=== PATIENT | male | born 1960 | race Asian ===

== ENCOUNTER 2025-09-17 23:13 | Inpatient (IN) | payer OTHER, MEDICARE, SELFPAY ==
[2025-09-17 23:23] VITALS: BMI 28.5
[2025-09-17 23:25] VITALS: BP 134/85; PULSE 89; RESP 18; TEMP 36.7; O2SAT 95
--- NOTE | 2025-09-17 23:48 | XR_ITS ---
EXAMINATION: AP chest single view TECHNIQUE: AP sitting portable chest single view Date and time: September 18, 2025, 0007 hours INDICATION: Chest pain beginning 4 days ago. FINDINGS: Normal heart size Lungs are clear. Osseous structures are intact IMPRESSION: No active disease
--- NOTE | 2025-09-17 23:50 | XR_ITS ---
Examination: Knee, left, 3 views Technique: Knee AP, lateral, oblique 3 views Date and time of exam: September 18, 2025, 0015 hours INDICATIONS: Left knee swelling and pain beginning 4 days ago. FINDINGS: Moderate tricompartment osteoarthritis No fracture or dislocation Small to moderate knee effusion IMPRESSION: Moderate tricompartment osteoarthritis Small to moderate knee effusion
--- NOTE | 2025-09-17 23:52 | PD.EDRME ---
Rapid Medical Screening Exam [facility] Arrival date/time: 09/17/25 23:13 65M with no significant PMH presents to ED with several complaints: 2 week of intermittent but worsening ab pain and some solid but black stools. Patient denies N/V and dysuria/hematuria. Separately, patient also has a slight cough and some SOB, as well as bilateral feet swelling. There is also L knee swelling and pain w/o fall/trauma. Patient denies alcohol/drug use. Chief Complaint: Abdominal Pain Vital signs: Vital Signs Temperature 98.1 F 09/17/25 23:25 Pulse Rate 89 09/17/25 23:25 Respiratory Rate 18 09/17/25 23:25 Blood Pressure 134/85 H 09/17/25 23:25 Pulse Oximetry (%) 95 09/17/25 23:25 Oxygen Delivery Method Room Air 09/17/25 23:25 Exam: Normal WOB. RLQ tenderness and guarding. L knee tenderness and swelling. Some bilateral feet swelling, but no obvious lower leg/thigh swelling. Clinical Impression: CHF vs CAP vs appy vs colitis vs GIB vs septic arthritis vs joint pain vs URI
--- NOTE | 2025-09-18 | XR_ITS ---
MRI abdomen, without contrast. MRCP Date and time of exam: September 18, 2025, 0948 hours INDICATIONS: Diarrhea abdominal pain elevated liver function test today, acute calculus cholecystitis on ultrasound study today Technique: Multiple axial and coronal images of the abdomen have been obtained with the Siemens 1.5T MRI scanner. Images obtained included T1 weighted transverse images, T2-weighted transverse images, T2-weighted transverse images fat-suppressed, T2 weighted haste fat suppressed transverse images, T1 weighted images, in and out of phase images, T2-weighted coronal images, breath hold, T2 weighted haze coronal images as well as T2 weighted coronal thick slab images, MRCP. Findings: No intrahepatic biliary tract dilatation Gallstones The gallbladder wall does not appear thickened or edematous on this study Common hepatic duct Common bile duct not enlarged no stones Pancreatic duct is nondilated Spleen is not enlarged No hydronephrosis IMPRESSION: Cholelithiasis, negative for cholecystitis No common hepatic or common bile duct stones Please see the CT abdomen pelvis report September 18, 2025 for description of large phlegmonous mass in the right lower abdomen
--- NOTE | 2025-09-18 00:12 | PD.EDABDPN ---
ED Abdominal Pain RME/HPI General Chief Complaint: Abdominal Pain Stated complaint: ABD PAIN, DIARRHEA, BLE SWELLING AND PAIN Time seen by provider: 09/18/25 00:03 Arrival date/time: 09/17/25 23:13 RME / HPI RME / HPI narrative: 09/17/25 23:13 65M with no significant PMH presents to ED with several complaints: 2 week of intermittent but worsening ab pain and some solid but black stools. Patient denies N/V and dysuria/hematuria. Separately, patient also has a slight cough and some SOB, as well as bilateral feet swelling. There is also L knee swelling and pain w/o fall/trauma. Patient denies alcohol/drug use. DR. STEEN MAIN ED EVALUATION: 65 y/o male presents to ED c/o severe all-over abdominal pain with dark colored stool x 2 weeks. Also reports severe left knee pain x 1 week. Patient reports IBU use to manage the knee pain and is concerned for peptic ulcers. Son states patient has been crawling to the restroom due to knee pain, but patient denies any recent falls or injuries. Patient lives alone at home since and family lives in [place]. Denies any medical history or medications. Denies nausea, fever, and vomiting. Also denies history of kidney stones or dysuria. Denies tobacco or alcohol use. No allergies to medications reported. Exam: Normal WOB. RLQ tenderness and guarding. L knee tenderness and swelling. Some bilateral feet swelling, but no obvious lower leg/thigh swelling. Impression: CHF vs CAP vs appy vs colitis vs GIB vs septic arthritis vs joint pain vs URI Related Data Home Medications ?Medication ?Instructions ?Recorded ?Confirmed Fish Oil 1 tab PO DAILY 09/18/25 09/18/25 Probiotic 1 tab PO DAILY 09/18/25 09/18/25 cholecalciferol (vitamin D3) 50 50 mcg PO QDAY 09/18/25 09/18/25 mcg (2,000 unit) capsule (Vitamin D3) cyanocobalamin (vitamin B-12) 2,000 mcg PO QDAY 09/18/25 09/18/25 1,000 mcg tablet (Vitamin B-12) dorzolamide 22.3 mg-timolol 6.8 1 drp Both eyes BID 09/18/25 09/18/25 mg/mL eye drops latanoprost 0.005 % eye drops 1 drp Both eyes DAILY 09/18/25 09/18/25 magnesium 1 tab PO DAILY 09/18/25 09/18/25 magnesium 200 mg tablet 400 mg PO QDAY 09/18/25 09/18/25 zinc 25 mg tablet 25 mg PO DAILY 09/18/25 09/18/25 Allergies Allergy/AdvReac Type Severity Reaction Status Date / Time No Known Allergies Allergy Verified 09/17/25 23:21 Review of Systems Review of Systems Systems Reviewed: All systems reviewed, normal except as documented ED Exam Narrative Physical exam: GEN. APPEARANCE: The patient is alert awake oriented X-3 in no distress, lying down comfortably, does not look ill/toxic. Patient has good eye contact. Patient is cooperative. VITALS: All vitals were reviewed and the pulse ox is 95% on room air which is normal according to my interpretation. HEENT: Normocephalic, atraumatic. Pupils are equal and reactive. Oral mucosa is moist. Patent Nares NECK: Supple, nontender, no thyromegaly, no meningismus, no JVD CHEST: Symmetrical, atraumatic, and with equal expansion , Nontender on palpation no deformity and no crepitus. CARDIOVASCULAR: Heart regular rhythm no murmur or gallop rub or extra beats. LUNGS: Clear to auscultation bilaterally with symmetrical chest rise. No laboring tachypnea or wheezing. No intercostal subcostal retraction. No rales and no rhonchi. ABDOMEN: Soft, flat, tender to palpation at the RUQ, LUQ, and Epigastrium, no guarding or rebound tenderness. There are no abnormal masses palpated. Active and normal bowel sounds. EXTREMITIES: TTP just below left knee. No edema. No cyanosis. Patient is able to move all 4 extremities well, with full ROM and good CSM. SKIN: Warm and dry, no jaundice or rashes noted. MUSCULOSKELETAL: No lumbar or midline bony tenderness. There is no CVA tenderness. No paraspinal muscle spasm or tenderness. NEURO: Patient is DUNHAM x 4, Cranial nerves II through XII grossly intact. There is no focal neurologic deficits noted. GCS is 15, PNS and ADMINISTRATIVE EXECUTIVE appear grossly intact. PSYCHIATRIC: Patient is in normal mood and affect. Course Quality Measures none Orders Category Date Time Status CT Screening NOW Care 09/18/25 00:14 Completed EKG (ED ONLY) *Do not use* NOW Care 09/17/25 23:49 Completed Insert IV NOW Care 09/17/25 23:50 Completed Consult to Gastroenterology Stat Cons 09/18/25 01:[address] angio abdomen pelvis Stat Exams 09/18/25 00:13 Completed EKG (ED Only) Stat Exams 09/17/25 23:49 Ordered US abdomen limited Stat Exams 09/18/25 01:04 Completed XR chest 1V portable Stat Exams 09/17/25 23:48 Completed XR knee LT 3V Stat Exams 09/17/25 23:50 Completed B-Type Natriuretic Peptide Stat Lab 09/17/25 00:00 Completed Blood Culture (Lab) Stat Lab 09/18/25 04:25 Results CBC Stat Lab 09/17/25 00:00 Completed Comprehensive Metabolic Panel Stat Lab 09/17/25 00:00 Completed Hemoglobin A1C [Glycohemoglobin w (eAG)] Stat Lab 09/18/25 00:00 Completed INR [Prothrombin Time with INR] Stat Lab 09/18/25 01:41 Completed Lactate (Lactic Acid) Stat Lab 09/17/25 00:00 Completed Lactic Acid [Lactate (Lactic Acid)] Stat Lab 09/18/25 04:25 Completed Magnesium Stat Lab 09/17/25 00:00 Completed Procalcitonin Stat Lab 09/17/25 00:00 Completed Troponin I Stat Lab 09/17/25 00:00 Completed Type and Screen Stat Lab 09/18/25 01:41 Completed Morphine* Inj Med 09/17/25 23:50 Discontinued 4 mg IV X1 ONE Ondansetron Inj [Zofran Inj] Med 09/17/25 23:50 Discontinued 4 mg IVP X1 ONE Pantoprazole/Ns 80Mg IV Premix [Protonix/NS 80mg IV Med 09/18/25 01:05 Discontinued Premix] 80 mg in 100 ml IV X1 Pantoprazole/Ns 80Mg IV Premix [Protonix/NS 80mg IV Med 09/18/25 01:05 Discontinued Premix] 80 mg in 100 ml IV X1 Piper/Tazo Inj [Zosyn Inj] 4.5 gm Med 09/18/25 03:50 Discontinued Sodium Chloride 0.9% (Pop) [NS 0.9% mini bag] 100 ml IV X1 Vital Signs Vital signs: Vital Signs Temperature 98.1 F 09/17/25 23:25 Pulse Rate 89 09/17/25 23:25 Respiratory Rate 18 09/17/25 23:25 Blood Pressure 134/85 H 09/17/25 23:25 Pulse Oximetry (%) 95 09/17/25 23:25 Oxygen Delivery Method Room Air 09/17/25 23:25 Abdominal Pain MDM MDM Narrative MDM Narrative:: Scribe Attestation: Kiana Bunch am scribing for and in the presence of Dr. Steen. Provider Notation: Although this document has been carefully reviewed, there may still be some phonetic and other typographical errors. These errors are purely grammatical due to imperfections in the software program and should not be construed in any way to compromise the substance of the patient's medical care during this visit. Patient is a 65-year-old male with medical history notable for chronic left knee pain, and frequent ibuprofen use that is in emergency department concerns for melena, diffuse abdominal pain, worse in the epigastrium and the right upper quadrant as well as left knee pain and weakness for the last week. Vital signs and exam as listed. Concern for perforated ulcer, gastritis, cholelithiasis cholecystitis pancreatitis, ACS arrhythmia urinary tract infection among others. Patient also with tenderness to palpation in the knee on the left side inferior to the patella, no swelling fluctuance or crepitus appreciated, no pain in the calf nor in the thigh knee. Less likely DVT, septic joint. Concern for worsening osteoarthritis versus meniscal tear. Ordered CT angio of the abdomen, labs, EKG, chest x-ray, knee x-ray, Protonix bolus and drip as well as medications for symptom relief. Also placed consult over night to wire web worker Dr. León. Labs with evidence of leukocytosis 13, no left shift, hemoglobin 11.8 do not have a prior for comparison. No acute electrolyte abnormalities, patient's lactic acid is normal, T. bili is 1.9 AST is 94 ALT is 102 alk phos 212, right upper quadrant ultrasound shows a normal common bile duct however has findings concerning for possible cholecystitis. Patient's procalcitonin is 0.74. Patient's blood type is O+. CT abdomen pelvis with contrast shows a right lower quadrant abscess, inflammatory changes of the cecum associated with peripheral edema. Patient with gallstones and gallbladder wall thickening concerning for acute calculous cholecystitis. Ordered blood cultures and antibiotics. Consulted Dr. Simms, will evaluate patient. Request's admission to hospitalist service. Discussed with hospitalist service, will admit. Patient data External records reviewed:: [facility] previous records (No prior ED records available for review.) Clinical information provided by:: patient and family (Son) Social determinants that could affect healthcare access:: none Patient has the following chronic illnesses:: None reported How is presenting disease/condition affected by chronic disease/condition?: no chronic disease Evaluation data The following diagnostics were reviewed and interpreted by me:: lab results, radiology exam(s) and EKG tracing(s) (EKG done at 00:04, 89 bpm, normal intervals, non-specific T-wave changes, not a cardiac alert. - Interpreted by Dr. Klarissa Steen.) Lab and/or radiology exams considered but not ordered:: None Interpretation Summary: RADIOLOGY Right Knee X-Ray: Pending official radiology report. Chest X-Ray: Pending official radiology report. Abdomen US: Findings: The liver is enlarged demonstrates increased echogenicity. No intrahepatic biliary ductal dilatation. Gallbladder wall thickening. Gallstones. No pericholecystic fluid is demonstrated. The common bile duct is normal in caliber at 5.8 mm. The pancreas is unremarkable to the extent visualized. The imaged portions of the right kidney are within normal limits. The portal vein is patent with hepatopetal flow and normal wave Doppler spectral analysis. The IVC is patent with normal wave Doppler spectral analysis. The hepatic veins are patent with normal wave Doppler spectral analysis. Miller sign is not available at the time of this report. Impression: Gallstones associated with gallbladder wall thickening, highly suspicious for acute calculous cholecystitis. Hepatomegaly associated with liver steatosis, suspicious for steatohepatitis. Abdomen/Pelvis CT: Findings: The abdominal aorta demonstrates mild atheromatous calcification without evidence of dissection or aneurysm. The celiac, superior mesenteric, inferior mesenteric and bilateral renal arteries are patent to the extent visualized. The common iliac, external iliac and internal iliac arteries are patent bilaterally. The liver, spleen, pancreas, adrenals and kidneys are unremarkable. Gallstones. Gallbladder wall thickening. No evidence of bowel obstruction. The appendix is not visualized. Right lower quadrant collection measuring 4.9 x 2.8 cm. Diverticulosis of the colon. The urinary bladder is unremarkable. There is no free fluid, free air or abscess. The osseous structures are unremarkable. The lung bases are clear. Severe thickening of the cecum associated with peripheral fat stranding. Enlarged prostate. Impression: 1. Right lower quadrant abscess. Surgical consult is recommended. 2. Inflammatory changes of the cecum associated with peripheral edema. Differential diagnosis includes acute appendicitis and acute diverticulitis of the cecum/proximal ascending colon with contained perforation. Surgical consult is recommended. 3. No evidence of abdominal aortic aneurysm or mesenteric vascular occlusion. 4. Gallstones and gallbladder wall thickening, highly suspicious for acute calculous cholecystitis. 5. Enlarged prostate. 6. No evidence of bowel or mesenteric ischemia. Medications / Prescriptions Medications or Prescriptions considered but not ordered:: None Medication administrations:: Medication Administration History Acetaminophen (Acetaminophen 325 Mg Tablet) 650 mg PO Q6H PRN PRN Reason: Fever >100.4 Stop: 10/18/25 05:56 Diclofenac Sodium (Diclofenac 1% Top Gel 100 Gm Tube) 2 gm TOP TID [facility] Stop: 10/20/25 09:14 Last Admin: 09/20/25 21:40 Dose: Not Given Documented By: CTF Non-Admin Reason: Patient Refused Admin: 09/20/25 15:19 Dose: 2 gm Documented By: Admin: 09/20/25 09:15 Dose: 2 gm Documented By: NIKOLAY Docusate Sodium (Docusate Sod 100 Mg Capsule) 100 mg PO BID [facility]; Protocol Stop: 10/20/25 08:59 Last Admin: 09/20/25 22:04 Dose: Not Given Documented By: [facility] Non-Admin Reason: Patient Refused Admin: 09/20/25 08:54 Dose: Not Given Documented By: NIKOLAY Non-Admin Reason: NPO Dorzolamide/Timolol (Dorzolamide/Timolol Op Mattie 10 Ml Btl) 1 drop BOTH EYES BID JASIEL Stop: 10/20/25 08:59 Last Admin: 09/20/25 21:31 Dose: 1 drop Documented By: [facility] Admin: 09/20/25 09:09 Dose: 1 1000units Documented By: NIKOLAY Piperacillin Sod/Tazobactam (Sod 4.5 gm/ Sodium Chloride) 100 mls @ 25 mls/hr IV Q8HR JASIEL; Protocol Stop: 09/25/25 13:59 Last Admin: 09/20/25 21:23 Dose: 25 mls/hr Documented By: [facility] Infusion: 09/20/25 19:14 Dose: Infused Documented By: [facility] Admin: 09/20/25 15:14 Dose: 25 mls/hr Documented By: Infusion: 09/20/25 11:35 Dose: Infused Documented By: Admin: 09/20/25 06:16 Dose: 25 mls/hr Documented By: [facility] Infusion: 09/20/25 01:53 Dose: Infused Documented By: [facility] Admin: 09/19/25 21:53 Dose: 25 mls/hr Documented By: [facility] Infusion: 09/19/25 18:16 Dose: Infused Documented By: [facility] Admin: 09/19/25 14:16 Dose: 25 mls/hr Documented By: Infusion: 09/19/25 10:32 Dose: Infused Documented By: Admin: 09/19/25 06:32 Dose: 25 mls/hr Documented By: [facility] Infusion: 09/19/25 01:22 Dose: Infused Documented By: [facility] Admin: 09/18/25 21:22 Dose: 25 mls/hr Documented By: [facility] Infusion: 09/18/25 18:59 Dose: Infused Documented By: [facility] Admin: 09/18/25 14:59 Dose: 25 mls/hr Documented By: [facility] Sodium Chloride (Ns) 1,000 mls @ 100 mls/hr IV .Q10H JASIEL Stop: 10/18/25 08:44 Last Admin: 09/20/25 22:04 Dose: Not Given Documented By: [facility] Non-Admin Reason: Wrong Time Admin: 09/20/25 21:20 Dose: 100 mls/hr Documented By: Infusion: 09/20/25 19:07 Dose: Infused Documented By: [facility] Admin: 09/20/25 09:07 Dose: 100 mls/hr Documented By: Infusion: 09/20/25 07:54 Dose: Infused Documented By: Admin: 09/19/25 21:54 Dose: 100 mls/hr Documented By: [facility] Infusion: 09/19/25 21:54 Dose: Infused Documented By: [facility] Admin: 09/19/25 14:17 Dose: 100 mls/hr Documented By: Infusion: 09/19/25 08:10 Dose: Infused Documented By: Admin: 09/18/25 22:10 Dose: 100 mls/hr Documented By: [facility] Infusion: 09/18/25 18:49 Dose: Infused Documented By: [facility] Admin: 09/18/25 08:49 Dose: 100 mls/hr Documented By: Latanoprost (Latanoprost Op Mattie 0.005% 2.5 Ml Btl) 1 drop BOTH EYES DAILY [facility] Stop: 10/20/25 08:59 Last Admin: 09/20/25 21:32 Dose: 1 drop Documented By: [facility] Admin: 09/20/25 09:12 Dose: Not Given Documented By: NIKOLAY Non-Admin Reason: Medication Not Available Morphine Sulfate (Morphine Sulf Inj 4 Mg/Ml Vial) 2 mg IVP Q6HR PRN PRN Reason: pain 7-10 Stop: 09/23/25 06:08 Last Admin: 09/20/25 11:59 Dose: 2 mg Documented By: Admin: 09/19/25 22:10 Dose: 2 mg Documented By: [facility] Admin: 09/19/25 07:54 Dose: 2 mg Documented By: Admin: 09/18/25 21:23 Dose: 2 mg Documented By: [facility] Pantoprazole Sodium (Pantoprazole Inj 40 Mg Vial) 40 mg IVP BID [facility] Stop: 10/18/25 20:59 Last Admin: 09/20/25 21:33 Dose: 40 mg Documented By: Admin: 09/20/25 08:53 Dose: 40 mg Documented By: Admin: 09/19/25 21:53 Dose: 40 mg Documented By: Admin: 09/19/25 08:11 Dose: 40 mg Documented By: Admin: 09/18/25 21:01 Dose: 40 mg Documented By: ERIC Discontinued Medications Benzocaine (Benzocaine 20% (Hurricaine) [place] 1 Dose) Confirm Administered Dose 1 dose TOP .STK-MED ONE Stop: 09/19/25 19:40 Benzocaine (Benzocaine 20% (Hurricaine) [place] 1 Dose) 0 dose TOP X1 ONE Stop: 09/19/25 19:39 Colchicine (Colchicine 0.6 Mg Tablet) 1.2 mg PO X1 ONE Stop: 09/18/25 17:39 Last Admin: 09/18/25 17:46 Dose: 1.2 mg Documented By: SHAINA Diclofenac Sodium (Diclofenac 1% Top Gel 100 Gm Tube) 2 gm TOP BID [facility] Stop: 10/18/25 20:59 Last Admin: 09/19/25 21:54 Dose: 2 gm Documented By: Admin: 09/19/25 08:22 Dose: 2 gm Documented By: Admin: 09/18/25 21:10 Dose: 2 gm Documented By: ERIC Diclofenac Sodium (Diclofenac 1% Top Gel 100 Gm Tube) 2 gm TOP TID [facility] Stop: 10/20/25 13:59 Diphenhydramine HCl (Diphenhydramine Elix 25 Mg/10 Ml Udc) 12.5 mg PO X1 ONE Stop: 09/18/25 22:19 Last Admin: 09/18/25 23:10 Dose: 12.5 mg Documented By: ERIC Diphenhydramine HCl (Diphenhydramine Inj 50 Mg/Ml Vial) Confirm Administered Dose 50 mg .ROUTE .STK-MED ONE Stop: 09/19/25 19:40 Diphenhydramine HCl (Diphenhydramine Inj 50 Mg/Ml Vial) 25 mg IVP [id number] PRN PRN Reason: MODERATE SEDATION Diphenhydramine HCl (Diphenhydramine Elix 25 Mg/10 Ml Udc) 12.5 mg PO X1 ONE Stop: 09/19/25 22:26 Last Admin: 09/19/25 22:35 Dose: 12.5 mg Documented By: ERIC Diphenhydramine HCl (Diphenhydramine Elix 25 Mg/10 Ml Udc) 12.5 mg PO X1 ONE Stop: 09/20/25 20:31 Last Admin: 09/20/25 21:21 Dose: 12.5 mg Documented By: CTF Fentanyl Citrate (Fentanyl Cit Inj 50 Mcg/Ml Amp 2ml) Confirm Administered Dose 200 mcg .ROUTE .STK-MED ONE Stop: 09/18/25 14:23 Last Admin: 09/18/25 15:31 Dose: Not Given Documented By: SHAINA Non-Admin Reason: not documented by IR Fentanyl Citrate (Fentanyl Cit Inj 50 Mcg/Ml Amp 2ml) Confirm Administered Dose 100 mcg .ROUTE .STK-MED ONE Stop: 09/19/25 19:40 Fentanyl Citrate (Fentanyl Cit Inj 50 Mcg/Ml Amp 2ml) 50 mcg IVP Q2M PRN PRN Reason: MODERATE SEDATION Pantoprazole Sodium (Protonix/Ns 80mg Iv Premix) 80 mg in 100 mls @ 400 mls/hr IV X1 ONE Stop: 09/18/25 01:19 Last Infusion: 09/18/25 01:40 Dose: Infused Documented By: Admin: 09/18/25 01:25 Dose: 400 mls/hr Documented By: SR Pantoprazole Sodium (Protonix/Ns 80mg Iv Premix) 80 mg in 100 mls @ 10 mls/hr IV X1 ONE Stop: 09/18/25 11:04 Last Admin: 09/18/25 01:43 Dose: 10 mls/hr Documented By: SR Piperacillin Sod/Tazobactam (Sod 4.5 gm/ Sodium Chloride) 100 mls @ 200 mls/hr IV X1 ONE; Protocol Stop: 09/18/25 04:19 Last Infusion: 09/18/25 04:55 Dose: Infused Documented By: Admin: 09/18/25 04:25 Dose: 200 mls/hr Documented By: SR Lactated Ringer's (Lactated Ringers) 1,000 mls @ 100 mls/hr IV .Q10H JASIEL Stop: 10/18/25 05:59 Last Admin: 09/18/25 08:45 Dose: Not Given Documented By: EF Non-Admin Reason: Cancelled by Provider Potassium Chloride (Kcl Ivpb) 10 meq in 100 mls @ 100 mls/hr IV Q1H JASIEL Stop: 09/20/25 11:48 Last Admin: 09/20/25 15:15 Dose: 100 mls/hr Documented By: Infusion: 09/20/25 12:51 Dose: Infused Documented By: Admin: 09/20/25 11:51 Dose: 100 mls/hr Documented By: Infusion: 09/20/25 10:13 Dose: Infused Documented By: Admin: 09/20/25 09:13 Dose: 100 mls/hr Documented By: GAW Lidocaine HCl (Lidocaine Inj Pf 1% 30 Ml Vial) Confirm Administered Dose 30 ml .ROUTE .STK-MED ONE Stop: 09/18/25 14:23 Last Admin: 09/18/25 15:31 Dose: Not Given Documented By: SHAINA Non-Admin Reason: not documented by IR Midazolam HCl (Midazolam Inj 1 Mg/Ml Vial 2 Ml) Confirm Administered Dose 4 mg .ROUTE .STK-MED ONE Stop: 09/19/25 19:40 Midazolam HCl (Midazolam Inj 1 Mg/Ml Vial 2 Ml) 2 mg IVP Q2M PRN PRN Reason: Moderate Sedation Morphine Sulfate (Morphine Sulf Inj 4 Mg/Ml Vial) 4 mg IV X1 ONE Stop: 09/17/25 23:51 Last Admin: 09/18/25 01:01 Dose: 4 mg Documented By: SR Naloxone HCl (Naloxone Inj 0.4 Mg/Ml Vial) Confirm Administered Dose 0.4 mg .ROUTE .STK-MED ONE Stop: 09/18/25 14:23 Last Admin: 09/18/25 15:32 Dose: Not Given Documented By: SHAINA Non-Admin Reason: not documented by IR Ondansetron HCl (Ondansetron Inj 2 Mg/Ml Inj 2 Ml) 4 mg IVP X1 ONE; Protocol Stop: 09/17/25 23:51 Last Admin: 09/18/25 01:01 Dose: 4 mg Documented By: SR See above if any. Consultations Consultation(s) initiated? (list below): Yes Consultation #1 (Physician, Specialty, Details): Discussed with Dr. Guerrero for admission. Reviewed the patient?s HPI, PMHx, lab and/or radiology results. Discussed treatment plan. Will consult an admission to the hospitalist. Time: 03:54 Consultation #2 (Physician, Specialty, Details): Dr. Simms made aware of the patient?s HPI, PMHx, lab and/or radiology results. Discussed treatment plan. Accepts patient for admission. Time: 03:59 Diagnosis Differential diagnosis abdominal pain: abdominal pain, acute appendicitis, calculus of kidney, constipation, diverticulitis, gastroenteritis, pancreatitis, small bowel obstruction and other (Ulcer, GERD, Fatty Liver) Most likely diagnosis given after review of the tests above:: Cholecystitis, Intra-abdominal abscess, Melena Admission Indicated Admission indicated?: indicated Explain why admission is indicated or not indicated:: Cholecystitis, Intra-abdominal abscess, Melena Admission Request Was there a request for admission?: Yes Admission Attestation Admission request attestation: Discussed case with Hospitalist service regarding admission. Discussed patients ED course, exam findings, labs, and radiology results. The Hospitalist [agrees] to accept the patient for admission. Disposition Plan Disposition Plan: Admit Critical Care Time Critical Care Time Critical Care Time: Yes Total Critical Care Time (min.): 45 Attestation: The high probability of sudden, clinically significant deterioration in the patient?s condition required the highest level of my preparedness to intervene urgently. The services I provided to this patient were to treat and/or prevent clinically significant deterioration. Services included the following: chart data review, reviewing nursing notes and/or old charts, documentation time, wedding consultant collaboration regarding findings and treatment options, medication orders and management, direct patient care, vital sign assessments and ordering, interpreting and reviewing diagnostic studies and lab tests. Aggregate critical care time includes only time during which I was engaged in work directly related to the patient?s care, as described above, whether at bedside or elsewhere in the Emergency Department. It did not include time spent performing other reported procedures or the services of residents, students, nurses or physician assistants. Discharge Plan Plan Patient Disposition: Admit Acute Care w/in Hospital Patient condition on transfer: Stable Problem List Clinical Impression: Cholecystitis, Intra-abdominal abscess, Melena
--- NOTE | 2025-09-18 00:13 | XR_ITS ---
Examination: CTA abdomen, with intravenous contrast. CTA pelvis, with intravenous contrast. 2-D sagittal and coronal reconstructions. 3-D reconstructions. Date and time of exam: September 18, 2025, 0211 hours INDICATIONS: Abdominal pain diarrhea bilateral leg swelling, clinical diagnosis of mesenteric ischemia or perforation CTDI vol (mgy) 8.32 DLP (MGycm) 584 Technique: Multiple CTA images, 2.0 mm slice thickness, obtained, abdomen, pelvis, with the high-resolution 64 slice scanner. 100 cc Isovue-370 is administered intravenously. Sagittal and coronal 2-D reconstructions are obtained. 3-D reconstructions, angiographic images are obtained. 3-D postprocessing, including vascular maximum intensity projections. Low dose protocols were performed. One or more of the following dose reduction techniques were used; automated exposure control, adjustment of the mA and/or KV according to patient size, use of iterative reconstruction technique. Findings: No visualized liver or splenic lesion Gallstones Gallbladder wall is thickened No pancreatic or adrenal mass Moderate renal scar formation Aorta normal size Phlegmonous mass in the right lower abdomen, axial image 189, 5 x 4.2 cm Fluid collection within this mass 4.3 x 2.8 cm, axial image 214 Adjacent small bowel loops are distended with wall thickening Significant prostatomegaly Bladder intact IMPRESSION: Acute calculus cholecystitis Large phlegmonous mass in the right lower abdomen as above, differential would include ruptured acute appendicitis, ruptured acute diverticulitis, ruptured cecal tumor with pericecal extensive inflammatory change Recommend surgical consultation
[2025-09-18 00:58] LABS: Lactate (Lactic Acid) 1.5 mMol/L (0.4-2.0)
[2025-09-18 00:59] LABS: Basophils # (Auto) 0.1 Thou/mm3 (0.0-0.2); Basophils % (Auto) 1 % (0-2.5); Eosinophils # (Auto) 0.0 Thou/mm3 (0.0-0.5); Eosinophils % (Auto) 0 % (0-10); Hematocrit 35.9 % (41.0-53.0); Hemoglobin 11.8 g/dL (13.5-16.0); Immature Granulocytes Auto 0.08 Thou/mm3 (0.00-0.00); Lymphocytes # (Auto) 2.1 Thou/mm3 (1.0-4.8); Lymphocytes % (Auto) 16 % (10-50); Mean Corpuscular HGB Conc 32.9 g/dl (31.0-37.0); Mean Corpuscular Hemoglobin 27.3 pg (25.0-35.0); Mean Corpuscular Volume 83 fL (80-100); Monocytes # (Auto) 0.8 Thou/mm3 (0.0-0.8); Monocytes % (Auto) 6 % (0-12); Neutrophils # (Auto) 10.0 Thou/mm3 (1.8-7.7); Neutrophils % (Auto) 77 % (37-80); Nucleated Red Blood Cell # 0.00 Thou/mm3 (0.00-0.00); Nucleated Red Blood Cell % 0 /100 WBC (0); Platelet Count 425 Thou/mm3 (140-440); RDW Standard Deviation 40.1 fL (35.1-43.9); Red Blood Count 4.33 Miln/mm3 (4.50-5.90); White Blood Count 13.0 Thou/mm3 (3.8-10.6)
[2025-09-18] MEDS: ONDANSETRON INJ 2 MG/ML INJ 2 ML 4 MG IVP (01:01)
[2025-09-18] MEDS: MORPHINE SULF INJ 4 MG/ML VIAL IV (01:01)
--- NOTE | 2025-09-18 01:04 | XR_ITS ---
Examination: Abdomen sonogram, Limited Date and time of exam: September 18, 2025, 0142 hours INDICATIONS: Abdominal pain with diarrhea beginning 2 weeks ago Technique: Real-time lee scale transabdominal sonographic images of the upper abdomen obtained. Findings: Multiple gallstones Gallbladder wall 0.39 cm no edema Common bile duct 0.6 cm Pancreatic head 2.3 cm Liver 18.0 cm no focal liver lesions Normal hepatopetal portal venous flow Patent IVC IMPRESSION: Cholelithiasis, suggest MRCP follow-up to exclude cholecystitis
[2025-09-18 01:17] LABS: B-Type Natriuretic Peptide 62 pg/mL (0-100)
[2025-09-18] MEDS: PANTOPRAZOLE/NS 80MG IV PREMIX 80 MG/100 ML BAG 400 MG IV (01:25)
[2025-09-18 01:27] LABS: Alanine Aminotransferase 102 U/L (10-49); Albumin, Serum 4.3 gm/dL (3.4-4.8); Albumin/Globulin Ratio 1.1 (1.2-2.2); Alkaline Phosphatase 212 U/L (46-116); Anion Gap 13 (7-16); Aspartate Amino Transferase 94 U/L (0-34); BUN/Creatinine Ratio 16 Ratio (12-20); Bilirubin,Total 1.9 mg/dL (0.3-1.2); Blood Urea Nitrogen 19 mg/dL (9-23); Calcium 9.0 mg/dL (8.3-10.6); Calcium (Corrected) 9.0 mg/dL (8.5-10.1); Carbon Dioxide 24.9 mMol/L (20.0-31.0); Chloride 100 mMol/L (98-107); Creatinine (Component) 1.2 mg/dL (0.6-1.3); Estimated Creatinine Clearance 72.5 mL/min (>60); Globulin 3.9 gm/dL (2.3-3.5); Glucose 137 mg/dL (74-106); Magnesium 2.0 mg/dL (1.6-2.6); Osmolality,Calculated 279 (275-295); Potassium 3.4 mMol/L (3.4-5.1); Procalcitonin 0.74 ng/ml (0.0-0.49); Sodium 138 mMol/L (136-145); Total Protein 8.2 gm/dL (5.7-8.2); Troponin I < 0.020 ng/mL (0.0-0.045); eGFR > 60 See Note
[2025-09-18] MEDS: PANTOPRAZOLE/NS 80MG IV PREMIX 80 MG/100 ML BAG 10 MG IV (01:43)
[2025-09-18 01:46] LABS: Glucose Estimated Average 105 mg/dL (80-131); Hemoglobin A1C 5.3 % Hgb (4.8-6.0)
[2025-09-18 02:01] LABS: INR 1.1 (0.9-1.3); Prothrombin Time 12.1 Seconds (9.0-12.2)
[2025-09-18 02:32] VITALS: BP 125/78; PULSE 76; RESP 16; TEMP 37.1; O2SAT 96
--- NOTE | 2025-09-18 03:26 | PRELIM_ITS ---
Right upper quadrant abdominal ultrasound with Doppler and wave Doppler spectral analysis. September 18, 2025 0144 hours Clinical history: Abdominal pain with diarrhea x2 weeks. Cholecystitis. Technique: Grayscale and color flow images of the right upper quadrant are provided. Hepatic and portal veins were also imaged with color flow images. Comparison: None available at the time of this report. Findings: The liver is enlarged demonstrates increased echogenicity. No intrahepatic biliary ductal dilatation. Gallbladder wall thickening. Gallstones. No pericholecystic fluid is demonstrated. The common bile duct is normal in caliber at 5.8 mm. The pancreas is unremarkable to the extent visualized. The imaged portions of the right kidney are within normal limits. The portal vein is patent with hepatopetal flow and normal wave Doppler spectral analysis. The IVC is patent with normal wave Doppler spectral analysis. The hepatic veins are patent with normal wave Doppler spectral analysis. Miller sign is not available at the time of this report. Impression: Gallstones associated with gallbladder wall thickening, highly suspicious for acute calculous cholecystitis. Hepatomegaly associated with liver steatosis, suspicious for steatohepatitis. Report Electronically Signed By: Hardik Anderson 09/18/2025 3:25:20 AM [EST]
--- NOTE | 2025-09-18 03:55 | PRELIM_ITS ---
CT angiogram of abdomen and pelvis with intravenous contrast (axial sections with sagittal and coronal reformats). September 18, 2025 at 0211 hours Clinical History: Mesenteric ischemia, perforation. Comparison: None available at the time of this report. Findings: The abdominal aorta demonstrates mild atheromatous calcification without evidence of dissection or aneurysm. The celiac, superior mesenteric, inferior mesenteric and bilateral renal arteries are patent to the extent visualized. The common iliac, external iliac and internal iliac arteries are patent bilaterally. The liver, spleen, pancreas, adrenals and kidneys are unremarkable. Gallstones. Gallbladder wall thickening. No evidence of bowel obstruction. The appendix is not visualized. Right lower quadrant collection measuring 4.9 x 2.8 cm. Diverticulosis of the colon. The urinary bladder is unremarkable. There is no free fluid, free air or abscess. The osseous structures are unremarkable. The lung bases are clear. Severe thickening of the cecum associated with peripheral fat stranding. Enlarged prostate. Impression: 1. Right lower quadrant abscess. Surgical consult is recommended. 2. Inflammatory changes of the cecum associated with peripheral edema. Differential diagnosis includes acute appendicitis and acute diverticulitis of the cecum/proximal ascending colon with contained perforation. Surgical consult is recommended. 3. No evidence of abdominal aortic aneurysm or mesenteric vascular occlusion. 4. Gallstones and gallbladder wall thickening, highly suspicious for acute calculous cholecystitis. 5. Enlarged prostate. 6. No evidence of bowel or mesenteric ischemia. Discussion Details: Results verbally communicated to : Dr. Hoskins at 03:37 AM 09/18/2025 Report Electronically Signed By: Hardik Anderson 09/18/2025 3:54:04 AM [EST]
[2025-09-18] MEDS: PIPER/TAZO INJ 4.5 GM in SODIUM CHLORIDE 0.9% (POP) 100 ML IV ×3 (04:25→21:22)
[2025-09-18 04:43] LABS: Lactate (Lactic Acid) 0.7 mMol/L (0.4-2.0)
--- NOTE | 2025-09-18 06:00 | ESHP_ITS ---
<Statement entered by Carlos Rivera MD - 09/18/25 19:45> 65-year-old male with significant past medical history of bilateral ankle joint pain since 2 years and uses ibuprofen as needed presented to the hospital with chief complaints of abdominal pain, blackish discoloration of stool since 2 weeks. Reported that a week before admission he noted blackish discoloration of stools for a week and later subsided. Later he noted to have severe abdominal pain mostly in the right lower quadrant that did not subside even taking 1200 mg of ibuprofen every day. Denies any other associated symptoms. Labs at the time of admission are significant for blood pressure 134/85 mmHg. Labs at the time of admission are significant for WBC 13, hemoglobin 11.8, total bilirubin 1.9, AST 94, ALT 102, procalcitonin 0.74. Abdomen/pelvis CTA showed acute calculous cholecystitis, large abscess in the right lower abdomen. Abdomen ultrasound showed cholelithiasis. Kept on n.p.o., admitted in the hospital for right lower quadrant abscess likely secondary to appendicitis complications. Started on IV fluids, Zosyn. Consulted general surgeon, Dr. Simms. Patient needs drainage of abscess either open or IR guided. Claim Approver, Dr. León is consulted in view of blackish discoloration of stools. FOBT is ordered follow-up with results I have personally seen and examined the patient, agree with residents assessment and plan Patient plan of care was discussed with the attending physician, Dr. Mane Rivrea, PGY2 <Statement entered by Perfecto Gilliam DO - 09/18/25 14:08> Patient was seen and examined by me. After the review of the clinical data, I agree that the patient will need an admission on inpatient status for RLQ abdominal pain and further evaluation and a surgical consult for abnormal findings of abscess/phlegmon in the RLQ on imaging. Plan of care discussed with patient who is in agreement. I Perfecto Gilliam DO, attest that I was physically present for hoyt portions of evaluation, examined the patient, reviewed the labs and imaging, and discussed the plan of care and management with the residents team. I agree with the findings and plans documented above. Documentation for date of: 09/18/25 HPI History of Present Illness History of present illness: HPI: 65-year-old male with no significant past medical history presenting to the ED with a 2-week history of abdominal pain and associated diarrhea. Patient endorsed a 4-5-day history of dark loose stools. He also endorsed constant dull right lower quadrant pain. Patient mentions taking 800 mg doses of ibuprofen twice a day for the past 2-3 years for right knee pain. He was found to have a hemoglobin of 11.8, T. bili 1.9, AST 94, ALT 102, alk phos 212, WBC 13. Prelim radiology report for CTAP showed evidence of right lower quadrant abscess, inflammatory changes in the cecum and associated peripheral edema. Differentials included acute appendicitis versus acute diverticulitis of the cecum/proximal ascending colon with contained perforation. CBD patent. Surgery and GI was consulted. Patient was admitted for contained perforation of the cecum/proximal ascending colon. ED Course: * Significant vitals on arrival: BP 134/85, remainder vitals within normal parameters. * Significant labs: T bili 1.9, hemoglobin of 11.8, T. bili 1.9, AST 94, ALT 102, alk phos 212, WBC 13. * Imaging: Prelim radiology report for CTAP showed evidence of right lower quadrant abscess, inflammatory changes in the cecum and associated peripheral edema. Differentials included acute appendicitis versus acute diverticulitis of the cecum/proximal ascending colon with contained perforation. Gallstones with gallbladder wall thickening and no pericholecystic fluid. CBD 5.8 mm. * ED intervention: 4 milligrams morphine IV, 4 mg ondansetron IV, 80 mg pantoprazole, started on a pantoprazole drip, and 4.5 GM Zosyn. History: * Past medical history: No significant past medical history * Surgical history: Noncontributory * Social history: Denies alcohol tobacco or illicit drug use Allergies: * No known drug allergies. Home Medications: (Pending Med Rec) * Ibuprofen 800 mg twice a day * Multi vitamin CODE STATUS: Full Code Review of Systems Review of Systems Narrative Review of Systems: Review of Systems: * General: Denies fevers, chills. * HEENT: Denies headache, congestion, or sore throat. * Cardiac: Denies chest pain or palpitations. * Pulmonary: Denies shortness of breath or cough. * GI: Constant dull ache right lower quadrant of 2 weeks duration. 4-5-day history of dark loose stools. Denies nausea, vomiting. * : Denies dysuria, hematuria, frequency, or urgency. * MSK: Right knee pain of 2-3 years duration, waxing waning right ankle pain of 2-3 years duration. * Neuro: Denies weakness, numbness, vision changes, or speech difficulty. Exam Vital Signs Temp Pulse Resp BP Pulse Ox O2 Del Method 98.7 F 76 16 125/78 96 Room Air 09/18/25 02:32 09/18/25 02:32 09/18/25 02:32 09/18/25 02:32 09/18/25 02:32 09/18/25 02:32 Narrative Exam General: Awake and in no acute distress. Conversational and non-toxic appearing. Neurologic: GCS 15. Alert and oriented x3, no gross neurological deficit, and patient able to move all 4 extremities. HEENT: Normocephalic, atraumatic, mucous membranes moist. Pupils reactive to light. Heart: Regular rate and rhythm, normal S1 and S2, no murmurs. Lungs: Clear to auscultation bilaterally with no wheezing or crackles. Abdomen: Palpation on deep palpation in the right lower quadrant, otherwise soft, nondistended, nontender, positive bowel sounds. No guarding or rebound tenderness. Extremities: Ankle slightly more swollen than the left ankle. Otherwise no edema. 2+ radial and dorsalis pedis pulses bilaterally. Skin: Warm. Dry. No rash or ecchymoses. Results: Labs 09/18/25 00:00 09/18/25 00:00 Labs: Short CBC 09/18/25 Range/Units 00:00 WBC 13.0 H (3.8-10.6) Thou/mm3 Hgb 11.8 L (13.5-16.0) g/dL Hct 35.9 L (41.0-53.0) % Plt Count 425 (140-440) Thou/mm3 BMP 09/18/25 00:00 Sodium 138 Potassium 3.4 Chloride 100 Carbon Dioxide 24.9 BUN 19 Creatinine 1.2 Glucose 137 H Calcium 9.0 Cardiac Enzymes 09/18/25 Range/Units 00:00 Troponin I < 0.020 (0.0-0.045) ng/mL Liver Function 09/18/25 Range/Units 00:00 Total Bilirubin 1.9 H (0.3-1.2) mg/dL AST 94 H (0-34) U/L ALT 102 H (10-49) U/L Alkaline Phosphatase 212 H (46-116) U/L Albumin 4.3 (3.4-4.8) gm/dL Quality Measures Quality Measures none Advance care planning discussed with:: patient Medications Home Medications and Allergies Allergies Allergy/AdvReac Type Severity Reaction Status Date / Time No Known Allergies Allergy Verified 09/17/25 23:21 Visit Medications Acetaminophen (Acetaminophen 325 Mg Tablet) 650 mg PO Q6H PRN PRN Reason: Fever >100.4 Stop: 10/18/25 05:56 Pantoprazole Sodium (Protonix/Ns 80mg Iv Premix) 80 mg in 100 mls @ 10 mls/hr IV X1 ONE Stop: 09/18/25 11:04 Last Admin: 09/18/25 01:43 Dose: 10 mls/hr Piperacillin Sod/Tazobactam (Sod 4.5 gm/ Sodium Chloride) 100 mls @ 200 mls/hr IV Q6HR JASIEL; Protocol Stop: 09/25/25 05:58 Discontinued Medications Pantoprazole Sodium (Protonix/Ns 80mg Iv Premix) 80 mg in 100 mls @ 400 mls/hr IV X1 ONE Stop: 09/18/25 01:19 Last Infusion: 09/18/25 01:40 Dose: Infused Piperacillin Sod/Tazobactam (Sod 4.5 gm/ Sodium Chloride) 100 mls @ 200 mls/hr IV X1 ONE; Protocol Stop: 09/18/25 04:19 Last Admin: 09/18/25 04:25 Dose: 200 mls/hr Morphine Sulfate (Morphine Sulf Inj 4 Mg/Ml Vial) 4 mg IV X1 ONE Stop: 09/17/25 23:51 Last Admin: 09/18/25 01:01 Dose: 4 mg Ondansetron HCl (Ondansetron Inj 2 Mg/Ml Inj 2 Ml) 4 mg IVP X1 ONE; Protocol Stop: 09/17/25 23:51 Last Admin: 09/18/25 01:01 Dose: 4 mg Assessment & Plan Plan Summary: 65-year-old male with no significant past medical history presenting to the ED with a 2-week history of abdominal pain and associated diarrhea. Patient endorsed a 4-5-day history of dark loose stools. He also endorsed constant dull right lower quadrant pain. Patient mentions taking 800 mg doses of ibuprofen twice a day for the past 2-3 years for right knee pain. Prelim radiology report for CTAP showed evidence of right lower quadrant abscess. Differentials included acute appendicitis versus acute diverticulitis of the cecum/proximal ascending colon with contained perforation. CBD patent. Patient was admitted for contained perforation of the cecum/proximal ascending colon. #Right lower quadrant pain * Present with a 2-week history of constant dull right lower quadrant abdominal pain * Prelim radiology report for CTAP showed evidence of right lower quadrant abscess. * Differentials included acute appendicitis versus acute diverticulitis of the cecum/proximal ascending colon with contained perforation Plan: * N.p.o. * General Surgery consulted * Zosyn 4.5 GM every 8 hours #Acute upper GI bleed * Patient endorsed 4-5-day history of dark loose stools on a daily basis * Presented with a hemoglobin of 11.8, no previous data * Most likely secondary to chronic NSAID use, 1600 mg daily for the past 2-3 years secondary to right knee and right ankle pain Plan: * N.p.o. * 2 large-bore IVs * Patient received pantoprazole 80 mg x 1 in the ED, started on pantoprazole drip * Avoiding NSAIDs/ASA/chemical anticoagulation * GI consulted #Elevated T. bili * Patient presented with a T. bili of 1.9, AST 94, ALT 102 * Prelim radiology report on CTAP showed a patent CBD * CTAP differential also included acute calculous cholecystitis - Mild leukocytosis of 13, afebrile, and absence of right upper quadrant pain makes acute calculous cholecystitis less likely Plan: * MRCP ordered #Right knee pain #Right ankle pain * Per patient history these have been chronic issues * Knee x-ray pending official read * Differential may include gout versus osteoarthritis versus Plan: * Uric acid level ordered Hospital Maintenance: DVT ppx: CDs, avoiding chemical prophylaxis in the presence of potential upper GI bleed GI ppx: Pantoprazole drip Diet: N.p.o. IV lines: Peripheral IVs Code status: Full code Dispo: Telemetry, surgery and GI consulted for potential upper GI bleed and potential contained perforated abscess in the cecum versus ascending colon. Patient was seen and discussed with my attending physician Dr. Mane WEINBERG and my senior resident Dr. Miguel GAGE PGY-2. Kingsley Camarillo DO PGY-1.
--- NOTE | 2025-09-18 06:00 | PD.RESHP ---
Documentation for date of: 09/18/25 HPI History of Present Illness History of present illness: HPI: 65-year-old male with no significant past medical history presenting to the ED with a 2-week history of abdominal pain and associated diarrhea. Patient endorsed a 4-5-day history of dark loose stools. He also endorsed constant dull right lower quadrant pain. Patient mentions taking 800 mg doses of ibuprofen twice a day for the past 2-3 years for right knee pain. He was found to have a hemoglobin of 11.8, T. bili 1.9, AST 94, ALT 102, alk phos 212, WBC 13. Prelim radiology report for CTAP showed evidence of right lower quadrant abscess, inflammatory changes in the cecum and associated peripheral edema. Differentials included acute appendicitis versus acute diverticulitis of the cecum/proximal ascending colon with contained perforation. CBD patent. Surgery and GI was consulted. Patient was admitted for contained perforation of the cecum/proximal ascending colon. ED Course: Significant vitals on arrival: BP 134/85, remainder vitals within normal parameters. Significant labs: T bili 1.9, hemoglobin of 11.8, T. bili 1.9, AST 94, ALT 102, alk phos 212, WBC 13. Imaging: Prelim radiology report for CTAP showed evidence of right lower quadrant abscess, inflammatory changes in the cecum and associated peripheral edema. Differentials included acute appendicitis versus acute diverticulitis of the cecum/proximal ascending colon with contained perforation. Gallstones with gallbladder wall thickening and no pericholecystic fluid. CBD 5.8 mm. ED intervention: 4 milligrams morphine IV, 4 mg ondansetron IV, 80 mg pantoprazole, started on a pantoprazole drip, and 4.5 GM Zosyn. History: Past medical history: No significant past medical history Surgical history: Noncontributory Social history: Denies alcohol tobacco or illicit drug use Allergies: No known drug allergies. Home Medications: (Pending Med Rec) Ibuprofen 800 mg twice a day Multi vitamin CODE STATUS: Full Code Review of Systems Review of Systems Narrative Review of Systems: Review of Systems: General: Denies fevers, chills. HEENT: Denies headache, congestion, or sore throat. Cardiac: Denies chest pain or palpitations. Pulmonary: Denies shortness of breath or cough. GI: Constant dull ache right lower quadrant of 2 weeks duration. 4-5-day history of dark loose stools. Denies nausea, vomiting. : Denies dysuria, hematuria, frequency, or urgency. MSK: Right knee pain of 2-3 years duration, waxing waning right ankle pain of 2-3 years duration. Neuro: Denies weakness, numbness, vision changes, or speech difficulty. Exam Vital Signs Temp Pulse Resp BP Pulse Ox O2 Del Method 98.7 F 76 16 125/78 96 Room Air 09/18/25 02:32 09/18/25 02:32 09/18/25 02:32 09/18/25 02:32 09/18/25 02:32 09/18/25 02:32 Narrative Exam General: Awake and in no acute distress. Conversational and non-toxic appearing. Neurologic: GCS 15. Alert and oriented x3, no gross neurological deficit, and patient able to move all 4 extremities. HEENT: Normocephalic, atraumatic, mucous membranes moist. Pupils reactive to light. Heart: Regular rate and rhythm, normal S1 and S2, no murmurs. Lungs: Clear to auscultation bilaterally with no wheezing or crackles. Abdomen: Palpation on deep palpation in the right lower quadrant, otherwise soft, nondistended, nontender, positive bowel sounds. No guarding or rebound tenderness. Extremities: Ankle slightly more swollen than the left ankle. Otherwise no edema. 2+ radial and dorsalis pedis pulses bilaterally. Skin: Warm. Dry. No rash or ecchymoses. Results: Labs 09/18/25 00:00 09/18/25 00:00 Labs: Short CBC 09/18/25 Range/Units 00:00 WBC 13.0 H (3.8-10.6) Thou/mm3 Hgb 11.8 L (13.5-16.0) g/dL Hct 35.9 L (41.0-53.0) % Plt Count 425 (140-440) Thou/mm3 BMP 09/18/25 00:00 Sodium 138 Potassium 3.4 Chloride 100 Carbon Dioxide 24.9 BUN 19 Creatinine 1.2 Glucose 137 H Calcium 9.0 Cardiac Enzymes 09/18/25 Range/Units 00:00 Troponin I < 0.020 (0.0-0.045) ng/mL Liver Function 09/18/25 Range/Units 00:00 Total Bilirubin 1.9 H (0.3-1.2) mg/dL AST 94 H (0-34) U/L ALT 102 H (10-49) U/L Alkaline Phosphatase 212 H (46-116) U/L Albumin 4.3 (3.4-4.8) gm/dL Quality Measures Quality Measures none Advance care planning discussed with:: patient Medications Home Medications and Allergies Allergies Allergy/AdvReac Type Severity Reaction Status Date / Time No Known Allergies Allergy Verified 09/17/25 23:21 Visit Medications Acetaminophen (Acetaminophen 325 Mg Tablet) 650 mg PO Q6H PRN PRN Reason: Fever >100.4 Stop: 10/18/25 05:56 Pantoprazole Sodium (Protonix/Ns 80mg Iv Premix) 80 mg in 100 mls @ 10 mls/hr IV X1 ONE Stop: 09/18/25 11:04 Last Admin: 09/18/25 01:43 Dose: 10 mls/hr Piperacillin Sod/Tazobactam (Sod 4.5 gm/ Sodium Chloride) 100 mls @ 200 mls/hr IV Q6HR JASIEL; Protocol Stop: 09/25/25 05:58 Discontinued Medications Pantoprazole Sodium (Protonix/Ns 80mg Iv Premix) 80 mg in 100 mls @ 400 mls/hr IV X1 ONE Stop: 09/18/25 01:19 Last Infusion: 09/18/25 01:40 Dose: Infused Piperacillin Sod/Tazobactam (Sod 4.5 gm/ Sodium Chloride) 100 mls @ 200 mls/hr IV X1 ONE; Protocol Stop: 09/18/25 04:19 Last Admin: 09/18/25 04:25 Dose: 200 mls/hr Morphine Sulfate (Morphine Sulf Inj 4 Mg/Ml Vial) 4 mg IV X1 ONE Stop: 09/17/25 23:51 Last Admin: 09/18/25 01:01 Dose: 4 mg Ondansetron HCl (Ondansetron Inj 2 Mg/Ml Inj 2 Ml) 4 mg IVP X1 ONE; Protocol Stop: 09/17/25 23:51 Last Admin: 09/18/25 01:01 Dose: 4 mg Assessment & Plan Plan Summary: 65-year-old male with no significant past medical history presenting to the ED with a 2-week history of abdominal pain and associated diarrhea. Patient endorsed a 4-5-day history of dark loose stools. He also endorsed constant dull right lower quadrant pain. Patient mentions taking 800 mg doses of ibuprofen twice a day for the past 2-3 years for right knee pain. Prelim radiology report for CTAP showed evidence of right lower quadrant abscess. Differentials included acute appendicitis versus acute diverticulitis of the cecum/proximal ascending colon with contained perforation. CBD patent. Patient was admitted for contained perforation of the cecum/proximal ascending colon. #Right lower quadrant pain Present with a 2-week history of constant dull right lower quadrant abdominal pain Prelim radiology report for CTAP showed evidence of right lower quadrant abscess. Differentials included acute appendicitis versus acute diverticulitis of the cecum/proximal ascending colon with contained perforation Plan: N.p.o. General Surgery consulted Zosyn 4.5 GM every 8 hours #Acute upper GI bleed Patient endorsed 4-5-day history of dark loose stools on a daily basis Presented with a hemoglobin of 11.8, no previous data Most likely secondary to chronic NSAID use, 1600 mg daily for the past 2-3 years secondary to right knee and right ankle pain Plan: N.p.o. 2 large-bore IVs Patient received pantoprazole 80 mg x 1 in the ED, started on pantoprazole drip Avoiding NSAIDs/ASA/chemical anticoagulation GI consulted #Elevated T. bili Patient presented with a T. bili of 1.9, AST 94, ALT 102 Prelim radiology report on CTAP showed a patent CBD CTAP differential also included acute calculous cholecystitis - Mild leukocytosis of 13, afebrile, and absence of right upper quadrant pain makes acute calculous cholecystitis less likely Plan: MRCP ordered #Right knee pain #Right ankle pain Per patient history these have been chronic issues Knee x-ray pending official read Differential may include gout versus osteoarthritis versus Plan: Uric acid level ordered Hospital Maintenance: DVT ppx: CDs, avoiding chemical prophylaxis in the presence of potential upper GI bleed GI ppx: Pantoprazole drip Diet: N.p.o. IV lines: Peripheral IVs Code status: Full code Dispo: Telemetry, surgery and GI consulted for potential upper GI bleed and potential contained perforated abscess in the cecum versus ascending colon. Patient was seen and discussed with my attending physician Dr. Mane WEINBERG and my senior resident Dr. Miguel GAGE PGY-2. Kingsley Camarillo DO PGY-1.
[2025-09-18 06:06] VITALS: BP 106/68; PULSE 70; RESP 18; TEMP 37.1; O2SAT 95
--- NOTE | 2025-09-18 07:03 | XR_ITS ---
Examination: CT pelvis, without contrast. 2-D sagittal reconstructions. 2-D coronal reconstructions. 3-D reconstructions. Date and time of exam: September 18, 2025, 1443 hours INDICATIONS: Large mass in the right lower abdomen contiguous with the cecum, 4.8 cm fluid collection anterior to this mass, preop for drainage CTDI: vol (mGy): 7.17 DLP: (mGycm): 217 Technique: Multiple 1.25 mm axial sections of the pelvis without intravenous contrast have been obtained. 2-D sagittal and coronal reconstructions have been obtained. 3-D reconstructions have been obtained. Low dose protocols were performed. One or more of the following dose reduction techniques were used; automated exposure control, adjustment of the mA and/or KV according to patient size, use of iterative reconstruction technique. Findings: Images demonstrate the fluid collection anterior to the mass in the right lower abdomen On all images significant fluid-filled bowel with air density surrounds this mass precluding safe aspiration IMPRESSION: On all images significant fluid-filled bowel with air density surrounds the abscess in the right lower abdomen, precluding safe aspiration
[2025-09-18 07:22] LABS: Uric Acid 9.3 mg/dL (3.7-9.2)
--- NOTE | 2025-09-18 07:23 | PD.SURCONS ---
HPI Consult details Consult date: 09/18/25 Reason for consultation narrative: Right lower quadrant abdominal abscess History of present illness: 65-year-old male without past medical history presented to the emergency department with worsening abdominal pain. This pain started about a week and a half ago for right sided abdomen. Over the past few days his pain has been getting progressively worse. He denies nausea, vomiting, fever, chills, diarrhea or constipation. He denies having similar symptoms in the past. He has not had colonoscopy in the past. He denies history of blood per rectum, changes in bowel habits or family history of colorectal cancer. Review of Systems Constitutional Constitutional: Denies chills and Denies fever(s) Cardiovascular Cardiovascular: Denies chest pain Respiratory Respiratory: Denies cough Gastrointestinal Gastrointestinal: Reports abdominal pain, Denies nausea and Denies vomiting Genitourinary Genitourinary: Denies difficulty urinating Musculoskeletal Musculoskeletal: Denies back pain Hematologic/Lymphatic Hematologic/Lymphatic: Denies easy bleeding and Denies easy bruising Past Medical History Surgical History OTHER SURGICAL HX: No surgeries in the past Social History SMOKING STATUS: Never smoker SUBSTANCE USE: does not use ALCOHOL: Never Meds Home Medications and Allergies Allergies Allergy/AdvReac Type Severity Reaction Status Date / Time No Known Allergies Allergy Verified 09/17/25 23:21 Exam Vital Signs Temp Pulse Resp BP Pulse Ox O2 Del Method 98.7 F 70 18 106/68 95 Room Air 09/18/25 06:06 09/18/25 06:06 09/18/25 06:06 09/18/25 06:06 09/18/25 06:06 09/18/25 06:06 Constitutional Constitutional: no acute distress Routine Abdominal Exam Comments: Abdomen is soft and nondistended. He has right lower quadrant tenderness to deep palpation with guarding, no rebound tenderness or peritonitis at this time Results Results: Laboratory Laboratory results: results reviewed Results: Imaging CT scan - abdomen: report reviewed and image reviewed CT scan - pelvis: report reviewed and image reviewed Assessment & Plan Additional Assessment Additional comments: He has an abscess of right lower quadrant likely secondary to perforated appendicitis, diverticulitis or malignancy. He was also noted to have gallstones with very minimal gallbladder wall thickening and slight elevation of liver enzymes. Plan IR drainage of right lower quadrant abscess, keep n.p.o. and IV antibiotics. If symptoms improve we will continue the course and he will require diagnostic colonoscopy in 6 to 8 weeks. If symptoms worsen and or clinical course deteriorate he will require laparotomy with partial bowel resection. Will defer management of gallstones at this time, elevation of liver enzymes likely secondary to the abscess. Will monitor liver enzymes if continues to go up will obtain MRCP.
[2025-09-18 08:23] LABS: Alanine Aminotransferase 89 U/L (10-49); Albumin, Serum 3.8 gm/dL (3.4-4.8); Alkaline Phosphatase 189 U/L (46-116); Aspartate Amino Transferase 73 U/L (0-34); Bilirubin,Direct 0.7 mg/dL (0.0-0.3); Bilirubin,Total 1.3 mg/dL (0.3-1.2); Total Protein 7.3 gm/dL (5.7-8.2)
[2025-09-18] MEDS: SODIUM CHLORIDE 0.9% 1000 ML 1,000 ML 100 ML IV ×2 (08:49→22:10)
--- NOTE | 2025-09-18 08:52 | PC.NURSE ---
encouraged patient to give urine sample patient stated hes been trying. let patient know about in and out catheter patient refused
[2025-09-18 09:05] LABS: Hepatitis A Antibody IgM Non Reactive (Non React); Hepatitis B Core Antibody IgM Non Reactive (Non React); Hepatitis B Surface Antigen Non Reactive (Non React); Hepatitis C Antibody Non Reactive (Non React)
--- NOTE | 2025-09-18 09:41 | PC.NURSE ---
Recvd order for Abscess Drain, revwed it with Dr. Hamilton. He is recommending a surgery consult instead. Called Brandon VELAZQUEZ and let him know about recommendations.
[2025-09-18 10:00] VITALS: BP 118/66; PULSE 84; RESP 21; TEMP 36.8; O2SAT 93
[2025-09-18 11:50] VITALS: BP 114/71; PULSE 83; RESP 21; TEMP 36.8; O2SAT 96
--- NOTE | 2025-09-18 12:38 | ESPR_ITS ---
<Statement entered by Justice Morales MD - 09/18/25 14:25> Patient was examined and case was reviewed with team including attending physician. Note reviewed, I agree with most of its contents and agree with the patient's care as documented by Dr. Rooney Patient seen today at the bedside found awake, alert, orientedx3. Overnight admission for right lower quadrant abscess. Vital signs and labs reviewed. Currently on IV antibiotics is pending IR vs General surgery drainage of abscess. NPO ordered placed. Wound care ordered and is following the patient. He complains of knee pain, there was suspicion for gout flare, ordered arthrocentesis and fluid/crystal studies ordered as well. Case discussed with my attending Dr. Ita Morales MD PGY-2 Documentation for date of: 09/18/25 Subjective Subjective Interval history: Patient seen at bedside this morning with son present. Reports no new complaints since admission. States abdominal pain is improved compared to admission but still painful. Left knee with pain on passive movement, active movement slow but less painful. Denies nausea or vomiting. Denies fevers or chills overnight. No dizziness or lightheadedness reported. No further episodes of dark stools since admission. Patient aware of and agreeable to planned procedures today. Exam Vital Signs Temp Pulse Resp BP Pulse Ox O2 Del Method 98.3 F 83 21 H 114/71 96 Room Air 09/18/25 11:50 09/18/25 11:50 09/18/25 11:50 09/18/25 11:50 09/18/25 11:50 09/18/25 11:50 Narrative Exam General: Awake, alert, no acute distress HEENT: Normocephalic, atraumatic, mucous membranes moist Cardiac: Regular rate and rhythm, no murmurs Pulmonary: Clear to auscultation bilaterally, no respiratory distress Abdomen: Soft, nondistended, right lower quadrant tenderness, no guarding or rebound Extremities: Left knee: Able to move slowly but with significant pain on passive movement; otherwise no erythema, warmth, or increased swelling since admission per patient its the same; right knee with no swelling, no erythema or warmth; no peripheral edema Neuro: Alert and oriented ?3, no focal deficits Skin: Warm, dry, no rashes Objective Labs 09/18/25 00:00 09/18/25 00:00 Labs: Laboratory Results - last 24 hr 09/18/25 09/18/25 09/18/25 00:00 01:41 04:25 WBC 13.0 H RBC 4.33 L Hgb 11.8 L Hct 35.9 L MCV 83 MCH 27.3 MCHC 32.9 RDW Std Deviation 40.1 Plt Count 425 Neut % (Auto) 77 Lymph % (Auto) 16 [place] % (Auto) 6 Eos % (Auto) 0 Baso % (Auto) 1 Neut # (Auto) 10.0 H Lymph # (Auto) 2.1 [place] # (Auto) 0.8 Eos # (Auto) 0.0 Baso # (Auto) 0.1 Immature Gran # (Auto) 0.08 H Absolute Nucleated RBC 0.00 Immature Gran % 1 H Nucleated RBC % 0 PT 12.1 INR 1.1 Sodium 138 Potassium 3.4 Chloride 100 Carbon Dioxide 24.9 Anion Gap 13 BUN 19 Creatinine 1.2 Estim Creat Clear Calc 72.5 eGFR > 60 BUN/Creatinine Ratio [address] Glu mg/dL 105 Hemoglobin A1c 5.3 Calculated Osmolality 279 Lactic Acid 1.5 0.7 Uric Acid 9.3 H Calcium 9.0 Corrected Calcium 9.0 Magnesium 2.0 Total Bilirubin 1.9 H 1.3 H D Direct Bilirubin 0.7 H AST 94 H 73 H ALT 102 H 89 H Alkaline Phosphatase 212 H 189 H D Troponin I < 0.020 B-Natriuretic Peptide 62 Total Protein 8.2 7.3 Albumin 4.3 3.8 D Globulin 3.9 H Albumin/Globulin Ratio 1.1 L Procalcitonin 0.74 H Hepatitis A IgM Ab Non Reactive Hep Bs Antigen Non Reactive Hep B Core IgM Ab Non Reactive Hepatitis C Antibody Non Reactive Blood Type O Positive Antibody Screen NEGATIVE Blood Bank Wristband ID Yes Quality Measures Quality Measures VTE prophylaxis Advance care planning discussed with:: patient and child Assessment & Plan Assessment Current Active Medications: Generic Name Dose Route Start Last Admin Trade Name Freq PRN Reason Stop Dose Admin Acetaminophen 650 mg 09/18/25 05:57 Acetaminophen 325 Mg Tablet PO 10/18/25 05:56 Q6H PRN Fever >100.4 Piperacillin Sod/Tazobactam 100 mls @ 25 mls/hr 09/18/25 14:00 Sod 4.5 gm/ Sodium Chloride IV 09/25/25 13:59 Q8HR JASIEL Protocol Sodium Chloride 1,000 mls @ 100 mls/hr 09/18/25 08:45 09/18/25 08:49 Ns IV 10/18/25 08:44 100 mls/hr .Q10H JASIEL Administration Morphine Sulfate 2 mg 09/18/25 06:09 Morphine Sulf Inj 4 Mg/Ml Vial IVP 09/23/25 06:08 Q6HR PRN pain 7-10 Pantoprazole Sodium 40 mg 09/18/25 21:00 Pantoprazole Inj 40 Mg Vial IVP 10/18/25 20:59 BID JASIEL Plan 65-year-old male with no significant PMH admitted for right lower quadrant phlegmon/abscess likely secondary to perforated appendicitis versus diverticulitis, with concurrent NSAID-associated melena and mild transaminitis, currently clinically stable on IV antibiotics and awaiting IR drainage. #Right Lower Quadrant Abscess #Contained Perforation 65-year-old male with RLQ phlegmon/abscess likely secondary to perforated appendicitis versus diverticulitis Clinically stable with improving pain. Plan: * Continue NPO * Continue IV Zosyn 4.5 g q8h * IR drainage planned today * General Surgery following * Serial abdominal exams * Monitor WBC and fever curve * If clinical deterioration, report to surgeon. # Suspected Upper GI Bleed (Melena) History of dark stools in the setting of chronic NSAID use Hemoglobin stable with no ongoing signs of bleeding. Plan: * Switch pantoprazole drip to IV protonix BID. * Avoid NSAIDs and ASA. * Trend hemoglobin daily * GI following pending med recs. # Transaminitis # Hyperbilirubinemia Likely reactive in the setting of intra-abdominal infection; bilirubin and LFTs downtrending. Plan: * MRCP complete, negative for cholecystitis and CBD stones * Continue to trend LFTs * Surgery deferring gallbladder intervention at this time # Cholelithiasis # Possible Acute Calculous Cholecystitis Imaging suggestive but patient without RUQ pain or systemic signs. Plan: * Conservative management per surgery * Reassess following MRCP and clinical course # Left Knee Pain / Effusion Chronic pain with imaging consistent with osteoarthritis; uric acid mildly elevated. Plan: * Avoid NSAIDs * Left knee arthrocentesis to be performed by IR. * Pain control with acetaminophen * Consider outpatient rheumatology or orthopedic follow-up * Monitor for worsening knee pain or effusion Health Maintenance DVT Prophylaxis: SCDs only GI Prophylaxis: Pantoprazole IV BID Diet: NPO Code Status: Full Code Disposition: Telemetry; pending IR drainage. ----- Plan discussed with attending physician Dr. Jean Baptiste and senior resident Dr. Shabbir Rooney MD PGY-1 Internal Medicine Attending Provider Attestation/Addendum I, Patt Jean Baptiste DO, attest that I was physically present for the hoyt portions of the service and evaluated the patient with the resident and I reviewed and discussed the case with the resident and agree with the resident's findings and plans of care as documented above Patient seen and evaluated this AM. Patient states he has had left knee pain for over a week. He has had hx of ankle pain 2/2 gout, but never in his knee. Patient has full range of motion of his left knee with some support of his left hand, but no swelling or erythema. There is tenderness to palpation of the left lateral aspect of his knee. Patient states he has been taking a lot of ibuprofen 800mg, up to four times a day, due to knee pain. He states that over the course of the week, developed constipation, followed by dark watery stool. He also endorses pain in his right lower quadrant. Patient does have pain with palpation of RLQ with some guarding. IR abscess drainage ordered, but not safe for aspiration at this time. Will continue with IV abx. Will also add topical diclofenac for left knee pain. Suspect OA, meniscal tear or gout. Will avoid systemic steroids or nsaids given concern for melena. Will add topical diclofenac.
[2025-09-18 14:09] VITALS: BMI 28.5
--- NOTE | 2025-09-18 15:01 | PD.RESCONSUL ---
HPI Data of Consult Requesting Physician: Perfecto Gilliam DO Admitting Provider: Perfecto Gilliam DO Attending Provider: Perfecto Gilliam DO Primary Care Provider: Physician No Primary/Family Consult Narrative History of present illness: 65-year-old male with no significant past medical history presents to the ED with a 2-week history of abdominal pain and diarrhea, including a 4-5 day history of dark loose stools and constant, dull right lower quadrant pain. He reports taking 800 mg ibuprofen twice daily for the past 2-3 years for right ankle pain and has been drinking only water for the past week. Denies nausea, vomiting, weight loss, hematemesis, or hematochezia. Hemoglobin on admission is 11.8 g/dL, baseline unknown. No previous EGD or colonoscopy. Past medical history: As stated above. Past surgical history: No significant GI surgical hx Allergies: NKDA Family history: Noncontributory. No family hx of CA. Social history: No alcohol use, no smoking, no illicit drug use. GI consulted for evaluation of potential upper GI bleed. cc:: cc: Perfecto Gilliam DO Review of Systems Review of Systems Systems Reviewed: All systems reviewed, normal except as documented Exam Vital Signs Temp Pulse Resp BP Pulse Ox O2 Del Method 98.3 F 83 21 H 114/71 96 Room Air 09/18/25 11:50 09/18/25 11:50 09/18/25 11:50 09/18/25 11:50 09/18/25 11:50 09/18/25 11:50 Results Labs 09/20/25 07:15 09/20/25 07:15 Labs: Short CBC 09/18/25 Range/Units 00:00 WBC 13.0 H (3.8-10.6) Thou/mm3 Hgb 11.8 L (13.5-16.0) g/dL Hct 35.9 L (41.0-53.0) % Plt Count 425 (140-440) Thou/mm3 BMP 09/18/25 00:00 Sodium 138 Potassium 3.4 Chloride 100 Carbon Dioxide 24.9 BUN 19 Creatinine 1.2 Glucose 137 H Calcium 9.0 Cardiac Enzymes 09/18/25 Range/Units 00:00 Troponin I < 0.020 (0.0-0.045) ng/mL Liver Function 09/18/25 09/18/25 Range/Units 00:00 04:25 Total Bilirubin 1.9 H 1.3 H D (0.3-1.2) mg/dL Direct Bilirubin 0.7 H (0.0-0.3) mg/dL AST 94 H 73 H (0-34) U/L ALT 102 H 89 H (10-49) U/L Alkaline Phosphatase 212 H 189 H D (46-116) U/L Albumin 4.3 3.8 D (3.4-4.8) gm/dL Quality Measures Quality Measures VTE prophylaxis Advance care planning discussed with:: patient Medications Home Medications and Allergies Home Medications ?Medication ?Instructions ?Recorded ?Confirmed ?Type Fish Oil 1 tab PO DAILY 09/18/25 09/18/25 History Probiotic 1 tab PO DAILY 09/18/25 09/18/25 History cholecalciferol (vitamin D3) 50 50 mcg PO QDAY 09/18/25 09/18/25 History mcg (2,000 unit) capsule (Vitamin D3) cyanocobalamin (vitamin B-12) 2,000 mcg PO QDAY 09/18/25 09/18/25 History 1,000 mcg tablet (Vitamin B-12) dorzolamide 22.3 mg-timolol 6.8 1 drp Both eyes BID 09/18/25 09/18/25 History mg/mL eye drops latanoprost 0.005 % eye drops 1 drp Both eyes DAILY 09/18/25 09/18/25 History magnesium 1 tab PO DAILY 09/18/25 09/18/25 History magnesium 200 mg tablet 400 mg PO QDAY 09/18/25 09/18/25 History zinc 25 mg tablet 25 mg PO DAILY 09/18/25 09/18/25 History Allergies Allergy/AdvReac Type Severity Reaction Status Date / Time No Known Allergies Allergy Verified 09/17/25 23:21 Visit Medications Acetaminophen (Acetaminophen 325 Mg Tablet) 650 mg PO Q6H PRN PRN Reason: Fever >100.4 Stop: 10/18/25 05:56 Piperacillin Sod/Tazobactam (Sod 4.5 gm/ Sodium Chloride) 100 mls @ 25 mls/hr IV Q8HR JASIEL; Protocol Stop: 09/25/25 13:59 Last Admin: 09/18/25 14:59 Dose: 25 mls/hr Sodium Chloride (Ns) 1,000 mls @ 100 mls/hr IV .Q10H JASIEL Stop: 10/18/25 08:44 Last Admin: 09/18/25 08:49 Dose: 100 mls/hr Morphine Sulfate (Morphine Sulf Inj 4 Mg/Ml Vial) 2 mg IVP Q6HR PRN PRN Reason: pain 7-10 Stop: 09/23/25 06:08 Pantoprazole Sodium (Pantoprazole Inj 40 Mg Vial) 40 mg IVP BID JASIEL Stop: 10/18/25 20:59 Discontinued Medications Pantoprazole Sodium (Protonix/Ns 80mg Iv Premix) 80 mg in 100 mls @ 400 mls/hr IV X1 ONE Stop: 09/18/25 01:19 Last Infusion: 09/18/25 01:40 Dose: Infused Pantoprazole Sodium (Protonix/Ns 80mg Iv Premix) 80 mg in 100 mls @ 10 mls/hr IV X1 ONE Stop: 09/18/25 11:04 Last Admin: 09/18/25 01:43 Dose: 10 mls/hr Piperacillin Sod/Tazobactam (Sod 4.5 gm/ Sodium Chloride) 100 mls @ 200 mls/hr IV X1 ONE; Protocol Stop: 09/18/25 04:19 Last Infusion: 09/18/25 04:55 Dose: Infused Lactated Ringer's (Lactated Ringers) 1,000 mls @ 100 mls/hr IV .Q10H [facility] Stop: 10/18/25 05:59 Last Admin: 09/18/25 08:45 Dose: Not Given Morphine Sulfate (Morphine Sulf Inj 4 Mg/Ml Vial) 4 mg IV X1 ONE Stop: 09/17/25 23:51 Last Admin: 09/18/25 01:01 Dose: 4 mg Ondansetron HCl (Ondansetron Inj 2 Mg/Ml Inj 2 Ml) 4 mg IVP X1 ONE; Protocol Stop: 09/17/25 23:51 Last Admin: 09/18/25 01:01 Dose: 4 mg Assessment & Plan Plan 65-year-old male with no significant PMH admitted for right lower quadrant phlegmon/early abscess likely secondary to perforated appendicitis/diverticulitis, with concurrent NSAID-associated melena and mild transaminitis, currently clinically stable on IV antibiotics and awaiting IR drainage. GI consulted to evaluate for potential upper GI bleed. #Suspected Upper GI Bleed (Melena) History of dark stools in the setting of chronic NSAID use No liver disease hx Hemoglobin stable with no ongoing signs of bleeding. Hemodynamically stable, not on O2 Anemia present, normocytic, unknown baseline No thrombocytopenia No coagulopathy Patient would like RLQ phlegmon/early abscess to be resolved first before any EGD Plan: - NPO, pending potential surgical intervention - Protonix 40mg IV BID. - Avoid NSAIDs and ASA. - Keep hgb >7 Ongoing issues, managed by the primary team: #Right Lower Quadrant Abscess #Contained Perforation # Transaminitis # Hyperbilirubinemia # Cholelithiasis # Possible Acute Calculous Cholecystitis # Left Knee Pain/Effusion Thank you for the consult. We will continue to follow the patient. Case discussed with my attending Dr. Mau Lyn MD PGY-1 Attending Provider Attestation/Addendum Patient evaluated at the request of the internal medicine team personally examined the patient went over the imaging studies of his laboratory data Bleeding issue is the phlegmonous mass in the right lower quadrant most likely perforated appendix Unable to be drained by IR today because of the dangerous approach as the bowel is in front of it We have been consulted for mild transaminitis as well as history of melena Patient is not actively bleeding at the moment and the hemoglobin hematocrit is reasonable Once the issue of the right lower quadrant abscess is resolved Then we will consider doing an upper endoscopy examination prior to discharge Monitor CBC IV Protonix Will follow the patient
--- NOTE | 2025-09-18 15:11 | PC.NURSE ---
patient came down to CT for abscess Drain, Patient put on a table for a shutdown planner CT, Dr. Hamilton evaluated and assessed scan. He stated there was not a safe approach to do the drain therefore canceled the procedure. Called Chikis VELAZQUEZ and let her know. Took patient back up to room via gurney. VSS patient content and with no complaints. Knee aspiration will be done on Sunday if fluid accumulates.
[2025-09-18 16:00] VITALS: BP 130/63; PULSE 89; RESP 19; TEMP 36.4; O2SAT 96
[2025-09-18] MEDS: COLCHICINE 0.6 MG TABLET 1.2 MG PO (17:46)
[2025-09-18 20:00] VITALS: BP 110/57; PULSE 78; RESP 18; TEMP 37.3; O2SAT 94
[2025-09-18] MEDS: DICLOFENAC 1% TOP GEL 100 GM TUBE TOP (21:10)
[2025-09-18] MEDS: MORPHINE SULF INJ 4 MG/ML VIAL 2 MG IVP (21:23)
[2025-09-18] MEDS: DiphenhydrAMINE ELIX 25 MG/10 ML UDC 12.5 MG PO (23:10)
[2025-09-19] VITALS (13 sets, daily range): BP systolic 96–123; BP diastolic 53–69; PULSE 71–86; RESP 14–94; TEMP 36.8–37.1; O2SAT 94–97; BMI 28.5; BMI 14.0
[2025-09-19 05:56] LABS: Basophils # (Auto) 0.0 Thou/mm3 (0.0-0.2); Basophils % (Auto) 0 % (0-2.5); Eosinophils # (Auto) 0.1 Thou/mm3 (0.0-0.5); Eosinophils % (Auto) 1 % (0-10); Hematocrit 29.9 % (41.0-53.0); Hemoglobin 9.5 g/dL (13.5-16.0); Immature Granulocytes Auto 0.07 Thou/mm3 (0.00-0.00); Lymphocytes # (Auto) 1.6 Thou/mm3 (1.0-4.8); Lymphocytes % (Auto) 15 % (10-50); Mean Corpuscular HGB Conc 31.8 g/dl (31.0-37.0); Mean Corpuscular Hemoglobin 27.2 pg (25.0-35.0); Mean Corpuscular Volume 86 fL (80-100); Monocytes # (Auto) 0.7 Thou/mm3 (0.0-0.8); Monocytes % (Auto) 6 % (0-12); Neutrophils # (Auto) 8.0 Thou/mm3 (1.8-7.7); Neutrophils % (Auto) 76 % (37-80); Nucleated Red Blood Cell # 0.00 Thou/mm3 (0.00-0.00); Nucleated Red Blood Cell % 0 /100 WBC (0); Platelet Count 309 Thou/mm3 (140-440); RDW Standard Deviation 42.8 fL (35.1-43.9); Red Blood Count 3.49 Miln/mm3 (4.50-5.90); White Blood Count 10.5 Thou/mm3 (3.8-10.6)
[2025-09-19] MEDS: PIPER/TAZO INJ 4.5 GM in SODIUM CHLORIDE 0.9% (POP) 100 ML IV ×3 (06:32→21:53)
[2025-09-19 06:53] LABS: Alanine Aminotransferase 54 U/L (10-49); Albumin, Serum 3.4 gm/dL (3.4-4.8); Albumin/Globulin Ratio 1.1 (1.2-2.2); Alkaline Phosphatase 156 U/L (46-116); Anion Gap 16 (7-16); Aspartate Amino Transferase 35 U/L (0-34); BUN/Creatinine Ratio 10 Ratio (12-20); Bilirubin,Total 1.0 mg/dL (0.3-1.2); Blood Urea Nitrogen 12 mg/dL (9-23); Calcium 8.1 mg/dL (8.3-10.6); Calcium (Corrected) 8.6 mg/dL (8.5-10.1); Carbon Dioxide 23.5 mMol/L (20.0-31.0); Chloride 103 mMol/L (98-107); Creatinine (Component) 1.2 mg/dL (0.6-1.3); Estimated Creatinine Clearance 72.5 mL/min (>60); Globulin 3.2 gm/dL (2.3-3.5); Glucose 95 mg/dL (74-106); Magnesium 2.0 mg/dL (1.6-2.6); Osmolality,Calculated 282 (275-295); Potassium 3.4 mMol/L (3.4-5.1); Sodium 142 mMol/L (136-145); Total Protein 6.6 gm/dL (5.7-8.2); eGFR > 60 See Note
[2025-09-19] MEDS: MORPHINE SULF INJ 4 MG/ML VIAL 2 MG IVP ×2 (07:54→22:10)
[2025-09-19] MEDS: DICLOFENAC 1% TOP GEL 100 GM TUBE TOP ×2 (08:22→21:54)
--- NOTE | 2025-09-19 09:16 | PD.SURPROG ---
Documentation for date of: 09/19/25 Subjective Subjective Narrative: Patient is seen and examined. Still having right lower quadrant abdominal pain. He also complains of left knee pain Exam Vital Signs Temp Pulse Resp BP Pulse Ox O2 Del Method 98.5 F 74 16 105/58 L 94 L Room Air 09/19/25 08:00 09/19/25 08:00 09/19/25 08:00 09/19/25 08:00 09/19/25 08:00 09/19/25 08:00 Constitutional Constitutional: no acute distress Routine Abdominal Exam Comments: Soft and nondistended. He has localized right lower quadrant tenderness to palpation with guarding, no rebound tenderness or peritonitis at this time Assessment & Plan Assessment Additional comments: Fluid collection could not be drained due to proximity to surrounding bowel. His WBC is improving Plan Continue IV antibiotics keep him n.p.o. except ice chips. Consider consulting orthopedic for his knee pain
--- NOTE | 2025-09-19 11:28 | PC.SS ---
67YO Male, Reason for visit: CHOLECYSTITIS. ? SS met with patient at bedside to complete initial assessment. Role and purpose of today?s contact explained to patient. Patient confirmed his demographic information, resides at [address] [place] [id number]. He stated his primary surrogate medical decision maker is his son Berto Roberts [phone].Patient reports he is independent with ADL completion and independent with ambulation also. PHARMACY: None. No current PCP. Discharge plan discussed with patient, he will be discharging home when medically clear. Patient to drive himself home, as his vehicle is parked on hospital grounds. ? NEXT OF KIN: Son Berto Roberts [phone]. DISCHARGE PLAN: Home
[2025-09-19 13:05] LABS: C-Reactive Protein > 10.0 mg/dL (0.0-0.9)
[2025-09-19 13:31] LABS: Sed Rate (ESR) 85 mm/hr (0-20)
--- NOTE | 2025-09-19 13:49 | ESPR_ITS ---
<Statement entered by Celso Davenport MD - 09/19/25 21:36> In morning, patient seemed frustrated as he continues to complain of right lower quadrant pain. Per patient, he has also had no answers to his joint pains and lower extremity edema that has been dealing for couple years. CARLOS, CRP and ESR ordered as patient may hae osteoarthritis or other autoimmune disorder. We will continue IV antibiotics and bowel rest. Attempt to drain the abscess was unsuccessful yesterday due to bowel gas. We will continue IV Zosyn and bowel rest for x1 more day, if patient improves and remains stable, anticipating to discharge within 24-48 hours. I discussed with and supervised the rn internship physician involved in the care of this patient. Patient assessment and plan was discussed with entire medicine team, including my attending. I agree with the assessment and plan as documented by rn internship doctor. Patient care was discussed with my attending physician Dr. Ita Davenport, PGY-3 Documentation for date of: 09/19/25 Subjective Subjective Interval history: Patient seen at bedside this morning with son present. States abdominal pain is improved compared to admission but still painful and does not want additional pain meds Left knee with pain on passive movement, active movement slow but less painful. New B/L ankle swelling. Denies nausea or vomiting. Denies fevers or chills overnight. No dizziness or lightheadedness reported. No further episodes of dark stools since admission. Exam Vital Signs Temp Pulse Resp BP Pulse Ox O2 Del Method 98.3 F 78 18 101/64 94 L Room Air 09/19/25 12:00 09/19/25 12:09/19/25 12:09/19/25 12:00 09/19/25 12:00 09/19/25 12:00 Narrative Exam General: Awake, alert, no acute distress HEENT: Normocephalic, atraumatic, mucous membranes moist Cardiac: Regular rate and rhythm, no murmurs Pulmonary: Clear to auscultation bilaterally, no respiratory distress Abdomen: Soft, nondistended, right lower quadrant tenderness, no guarding or rebound Extremities: Left knee: Able to move slowly but with significant pain on passive movement; otherwise no erythema, warmth, or increased swelling since admission per patient its the same; right knee with no swelling, no erythema or warmth; no peripheral edema B/L ankles swollen (new) Neuro: Alert and oriented ?3, no focal deficits Skin: Warm, dry, no rashes Objective Labs 09/19/25 04:55 09/19/25 04:55 Labs: Laboratory Results - last 24 hr 09/19/25 04:55 WBC 10.5 RBC 3.49 L Hgb 9.5 L D Hct 29.9 L MCV 86 MCH 27.2 MCHC 31.8 RDW Std Deviation 42.8 Plt Count 309 D Neut % (Auto) 76 Lymph % (Auto) 15 [place] % (Auto) 6 Eos % (Auto) 1 Baso % (Auto) 0 Neut # (Auto) 8.0 H Lymph # (Auto) 1.6 [place] # (Auto) 0.7 Eos # (Auto) 0.1 Baso # (Auto) 0.0 Immature Gran # (Auto) 0.07 H Absolute Nucleated RBC 0.00 Immature Gran % 1 H Nucleated RBC % 0 ESR 85 H Sodium 142 Potassium 3.4 Chloride 103 Carbon Dioxide 23.5 Anion Gap 16 BUN 12 Creatinine 1.2 Estim Creat Clear Calc 72.5 eGFR > 60 BUN/Creatinine Ratio 10 L Glucose 95 Calculated Osmolality 282 Calcium 8.1 L Corrected Calcium 8.6 Magnesium 2.0 Total Bilirubin 1.0 AST 35 H ALT 54 H Alkaline Phosphatase 156 H D C-Reactive Prot, Quant > 10.0 H Total Protein 6.6 Albumin 3.4 Globulin 3.2 Albumin/Globulin Ratio 1.1 L Quality Measures Quality Measures VTE prophylaxis Advance care planning discussed with:: patient Assessment & Plan Assessment Current Active Medications: Generic Name Dose Route Start Last Admin Trade Name Freq PRN Reason Stop Dose Admin Acetaminophen 650 mg 09/18/25 05:57 Acetaminophen 325 Mg Tablet PO 10/18/25 05:56 Q6H PRN Fever >100.4 Diclofenac Sodium 2 gm 09/18/25 21:00 09/19/25 08:22 Diclofenac 1% Top Gel 100 Gm Tube TOP 10/18/25 20:59 2 gm BID JASIEL Administration Piperacillin Sod/Tazobactam 100 mls @ 25 mls/hr 09/18/25 14:00 09/19/25 06:32 Sod 4.5 gm/ Sodium Chloride IV 09/25/25 13:59 25 mls/hr Q8HR JASIEL Administration Protocol Sodium Chloride 1,000 mls @ 100 mls/hr 09/18/25 08:45 12/19/25 22:10 Ns IV 10/18/25 08:44 100 mls/hr .Q10H JASIEL Administration Morphine Sulfate 2 mg 09/18/25 06:09 09/19/25 07:54 Morphine Sulf Inj 4 Mg/Ml Vial IVP 09/23/25 06:08 2 mg Q6HR PRN Administration pain 7-10 Pantoprazole Sodium 40 mg 09/18/25 21:00 09/19/25 08:11 Pantoprazole Inj 40 Mg Vial IVP 10/18/25 20:59 40 mg BID JASIEL Administration Plan 65-year-old male with no significant PMH admitted for right lower quadrant phlegmon/abscess likely secondary to perforated appendicitis versus diverticulitis, with concurrent NSAID-associated melena and mild transaminitis, currently clinically stable on IV antibiotics, with new ankle swelling with the on going left knee swelling and pain. #Right Lower Quadrant Abscess #Contained Perforation 65-year-old male with RLQ phlegmon/abscess likely secondary to perforated appendicitis versus diverticulitis Clinically stable with improving pain. Per surgery: Fluid collection could not be drained due to proximity to surrounding bowel. His WBC is improving Continue IV antibiotics keep him n.p.o. except ice chips. Consider consulting orthopedic for his knee pain Plan: * Continue NPO except ice chips * Continue IV Zosyn 4.5 g q8h * General Surgery following * Serial abdominal exams * Monitor WBC and fever curve * If clinical deterioration, report to surgeon. # Left Knee Pain / Effusion # B/L meagan swelling, new # OA vs RA? Chronic pain with imaging consistent with osteoarthritis; uric acid mildly elevated. Now with new b/l ankle swelling, consider RA vs OA ESR 85, CRP >10, pending CARLOS. Plan: * Avoid NSAIDs * Ordered ESR and CRP * Ordered CARLOS, pending * Left knee arthrocentesis to be performed by IR. * Started colchicine x1 order * Pain control with acetaminophen * Consider outpatient rheumatology or orthopedic follow-up * Monitor for worsening knee pain or effusion # Suspected Upper GI Bleed (Melena) History of dark stools in the setting of chronic NSAID use Hemoglobin stable with no ongoing signs of bleeding. Plan: * Switch pantoprazole drip to IV protonix BID. * Avoid NSAIDs and ASA. * Trend hemoglobin daily * GI following pending med recs. # Transaminitis # Hyperbilirubinemia Likely reactive in the setting of intra-abdominal infection; bilirubin and LFTs downtrending. Plan: * MRCP complete, negative for cholecystitis and CBD stones * Continue to trend LFTs * Surgery deferring gallbladder intervention at this time # Cholelithiasis # Possible Acute Calculous Cholecystitis Imaging suggestive but patient without RUQ pain or systemic signs. Plan: * Conservative management per surgery * Reassess following MRCP and clinical course Health Maintenance DVT Prophylaxis: SCDs only GI Prophylaxis: Pantoprazole IV BID Diet: NPO Code Status: Full Code Disposition: Telemetry; pending IR drainage. ----- Plan discussed with attending physician Dr. tIa Rooney MD PGY-1 Internal Medicine Attending Provider Attestation/Addendum I, Patt Jean Baptiste DO, attest that I was physically present for the hoyt portions of the service and evaluated the patient with the resident and I reviewed and discussed the case with the resident and agree with the resident's findings and plans of care as documented above Patient seen and eval this a.m. Patient was frustrated this morning about his ankle edema and pain in bilateral ankles, in addition to his left knee pain. Patient states that he has been dealing with this issue for 2 to 3 years. He states that he wants answers as to why he may have pain in his joints. Discussed with patient that he may have osteoarthritis versus inflammatory arthritis due to autoimmune disease leading to polyarticular arthritis. Patient denies any history of autoimmune disease in his family. Will obtain an CARLOS as well as ESR and CRP. However, ESR and CRP may be elevated given his current infection. Patient states that his abdominal pain appears to be unchanged. He continues to have some bloating. He states that he would like to drink water. Pain remains localized in the right lower quadrant. He remains on IV Zosyn. Attempt was made yesterday for drainage of phlegmon, but was not safe for procedure due to bowel gas. Will continue with IV fluid hydration and antibiotics at this time. Encourage bowel rest. Explained to patient that steroids and NSAIDs are currently being held for treatment of his joint pain due to concern for melena given that he was FOBT positive in the ED.
[2025-09-19] MEDS: SODIUM CHLORIDE 0.9% 1000 ML 1,000 ML 100 ML IV ×2 (14:17→21:54)
--- NOTE | 2025-09-19 19:49 | PC.NURSE ---
to naomi edouard, accompanied by endo staff.
--- NOTE | 2025-09-19 20:20 | SUR.PHASEI ---
received pt and report from MARCUS Mcintosh. Pt drowsy but easily arousable. Pt denies any pain. Pt awake, a&o x4. IV x1 intact, no s/s of infiltration or infection. no distress noted.
--- NOTE | 2025-09-19 20:35 | SUR.PHASEI ---
pt recovering well. pt is very tallkative. pt is asking for water, informed him Doctor ordered for him to continue to be NPO.
--- NOTE | 2025-09-19 20:40 | SUR.PHASEI ---
Dr. León stated pt can have ice chips. Pt tolerating ice chips, no nausea or pain. vss. iv remains intact. report given to MARCUS Varela.
[2025-09-19 21:16] LABS: OBS Card Lot # 124; OBS Developer Expiration Date 2027-02-28; OBS Developer Lot # 424; OBS Performed By fabic; OBS QC OK? Yes; Occult Blood, Stool Negative (Negative)
[2025-09-19] MEDS: DiphenhydrAMINE ELIX 25 MG/10 ML UDC 12.5 MG PO (22:35)
--- NOTE | 2025-09-19 22:37 | PC.NURSE ---
called director of labor and delivery notified re pt prefers am lab draw to be done at 6:15am because pt would like to sleep longer.
[2025-09-20] VITALS (9 sets, daily range): BP systolic 96–113; BP diastolic 54–87; PULSE 65–87; RESP 14–95; TEMP 36.4–37.7; O2SAT 94–96
[2025-09-20] MEDS: PIPER/TAZO INJ 4.5 GM in SODIUM CHLORIDE 0.9% (POP) 100 ML IV ×3 (06:16→21:23)
[2025-09-20 07:48] LABS: Basophils # (Auto) 0.0 Thou/mm3 (0.0-0.2); Basophils % (Auto) 0 % (0-2.5); Eosinophils # (Auto) 0.2 Thou/mm3 (0.0-0.5); Eosinophils % (Auto) 2 % (0-10); Hematocrit 30.7 % (41.0-53.0); Hemoglobin 9.9 g/dL (13.5-16.0); Immature Granulocytes Auto 0.06 Thou/mm3 (0.00-0.00); Lymphocytes # (Auto) 1.4 Thou/mm3 (1.0-4.8); Lymphocytes % (Auto) 14 % (10-50); Mean Corpuscular HGB Conc 32.2 g/dl (31.0-37.0); Mean Corpuscular Hemoglobin 27.4 pg (25.0-35.0); Mean Corpuscular Volume 85 fL (80-100); Monocytes # (Auto) 0.4 Thou/mm3 (0.0-0.8); Monocytes % (Auto) 4 % (0-12); Neutrophils # (Auto) 7.5 Thou/mm3 (1.8-7.7); Neutrophils % (Auto) 79 % (37-80); Nucleated Red Blood Cell # 0.00 Thou/mm3 (0.00-0.00); Nucleated Red Blood Cell % 0 /100 WBC (0); Platelet Count 358 Thou/mm3 (140-440); RDW Standard Deviation 42.5 fL (35.1-43.9); Red Blood Count 3.61 Miln/mm3 (4.50-5.90); White Blood Count 9.4 Thou/mm3 (3.8-10.6)
[2025-09-20 08:09] LABS: Alanine Aminotransferase 41 U/L (10-49); Albumin, Serum 3.3 gm/dL (3.4-4.8); Albumin/Globulin Ratio 0.9 (1.2-2.2); Alkaline Phosphatase 139 U/L (46-116); Anion Gap 15 (7-16); Aspartate Amino Transferase 25 U/L (0-34); BUN/Creatinine Ratio 9 Ratio (12-20); Bilirubin,Total 0.9 mg/dL (0.3-1.2); Blood Urea Nitrogen 10 mg/dL (9-23); Calcium 8.4 mg/dL (8.3-10.6); Calcium (Corrected) 9.0 mg/dL (8.5-10.1); Carbon Dioxide 23.6 mMol/L (20.0-31.0); Chloride 103 mMol/L (98-107); Creatinine (Component) 1.1 mg/dL (0.6-1.3); Estimated Creatinine Clearance 79.1 mL/min (>60); Globulin 3.5 gm/dL (2.3-3.5); Glucose 95 mg/dL (74-106); Magnesium 2.0 mg/dL (1.6-2.6); Osmolality,Calculated 282 (275-295); Phosphorous 3.4 mg/dL (2.4-5.1); Potassium 3.0 mMol/L (3.4-5.1); Sodium 142 mMol/L (136-145); Total Protein 6.8 gm/dL (5.7-8.2); eGFR > 60 See Note
--- NOTE | 2025-09-20 08:19 | PD.SURPROG ---
Documentation for date of: 09/20/25 Subjective Subjective Narrative: Patient is seen and examined. His pain is improving. He is passing flatus. He underwent EGD last night Exam Vital Signs Temp Pulse Resp BP Pulse Ox O2 Del Method O2 Flow Rate 98.9 F 79 18 101/56 L 94 L Room Air 2 09/20/25 04:00 09/20/25 04:00 09/20/25 04:00 09/20/25 04:00 09/20/25 04:00 09/20/25 00:00 09/19/25 20:25 Constitutional Constitutional: no acute distress Routine Abdominal Exam Comments: Abdomen is soft and nondistended. She has localized tenderness to deep palpation over right lower quadrant with guarding, no rebound tenderness or peritonitis at this time Assessment & Plan Assessment Additional comments: Clinically improving. He has remained afebrile and WBC is normal Plan Continue IV antibiotics. Start patient on clear liquids
[2025-09-20] MEDS: SODIUM CHLORIDE 0.9% 1000 ML 1,000 ML 100 ML IV ×2 (09:07→21:20)
[2025-09-20] MEDS: [UNRECOGNIZED DRUG - OTHER] BOTH EYES ×2 (09:09→21:31)
[2025-09-20] MEDS: DORZOLAMIDE BOTH EYES ×2 (09:09→21:31)
[2025-09-20] MEDS: POTASSIUM CHL 10 mEq IVPB 10 MEQ/100 ML BAG 100 MEQ IV ×3 (09:13→15:15)
[2025-09-20] MEDS: DICLOFENAC 1% TOP GEL 100 GM TUBE TOP ×2 (09:15→15:19)
--- NOTE | 2025-09-20 10:21 | ESPR_ITS ---
<Statement entered by Ronen Sanches MD - 09/25/25 08:34> I reviewed above note and agree with findings and plans. I have also personally examined the patient with medicine team and went over assessment and plan with medical team including internet researcher and resident physician. <Statement entered by Celso Davenport MD - 09/21/25 16:06> Patient with improvement of knee pain with diclofenac gel for which he is very happy. No other symptoms, reports improvement of abdominal pain and passing gas. Patient also scheduled arthrocentesis tomorrow. Patient to be seen by Dr. Simms, anticipating discharge within 24-48 hours. I discussed with and supervised the internet researcher physician involved in the care of this patient. Patient assessment and plan was discussed with entire medicine team, including my attending. I agree with the assessment and plan as documented by internet researcher doctor. Patient care was discussed with my attending physician Dr. Verónica Davenport, PGY-3 Documentation for date of: 09/20/25 Subjective Subjective Interval history: Patient seen at bedside this morning. Reports abdominal pain is improved. Denies bloating and states he is passing gas. Denies nausea or vomiting. Denies chest pain, shortness of breath, dizziness, or lightheadedness. No further episodes of melena. Regarding joints, patient reports improvement in left knee and bilateral ankle swelling and pain since starting diclofenac gel, and states he is able to move joints better today. Arthrocentesis has not yet been performed, planned for sunday. Patient was encouraged to ambulate, sit in chair, and increase activity today; patient agreeable and states he will do so after receiving scheduled diclofenac gel. Exam Vital Signs Temp Pulse Resp BP Pulse Ox O2 Del Method O2 Flow Rate 98.9 F 72 16 104/87 H 96 Room Air 2 09/20/25 08:00 09/20/25 08:00 09/20/25 08:00 09/20/25 08:00 09/20/25 08:00 09/20/25 08:00 09/19/25 20:25 Narrative Exam General: Awake, alert, no acute distress HEENT: Normocephalic, atraumatic, mucous membranes moist Cardiac: Regular rate and rhythm, no murmurs Pulmonary: Clear to auscultation bilaterally, no respiratory distress Abdomen: Soft, nondistended, mild RLQ tenderness improved, no guarding or rebound Extremities: * Left knee: Swelling improved, increased range of motion, less pain with movement, no erythema or warmth * Bilateral ankles: Swelling improved, non-tender, no erythema Neuro: Alert and oriented ?3, no focal deficits Skin: Warm, dry, no rashes Objective Labs 09/20/25 07:15 09/20/25 07:15 Labs: Laboratory Results - last 24 hr 09/19/25 09/19/25 09/20/25 04:55 20:02 07:15 WBC 9.4 RBC 3.61 L Hgb 9.9 L Hct 30.7 L MCV 85 MCH 27.4 MCHC 32.2 RDW Std Deviation 42.5 Plt Count 358 D Neut % (Auto) 79 Lymph % (Auto) 14 [place] % (Auto) 4 Eos % (Auto) 2 Baso % (Auto) 0 Neut # (Auto) 7.5 Lymph # (Auto) 1.4 [place] # (Auto) 0.4 Eos # (Auto) 0.2 Baso # (Auto) 0.0 Immature Gran # (Auto) 0.06 H Absolute Nucleated RBC 0.00 Immature Gran % 1 H Nucleated RBC % 0 ESR 85 H Sodium 142 Potassium 3.0 L Chloride 103 Carbon Dioxide 23.6 Anion Gap 15 BUN 10 Creatinine 1.1 Estim Creat Clear Calc 79.1 eGFR > 60 BUN/Creatinine Ratio 9 L Glucose 95 Calculated Osmolality 282 Calcium 8.4 Corrected Calcium 9.0 Phosphorus 3.4 Magnesium 2.0 Total Bilirubin 0.9 AST 25 ALT 41 Alkaline Phosphatase 139 H C-Reactive Prot, Quant > 10.0 H Total Protein 6.8 Albumin 3.3 L Globulin 3.5 Albumin/Globulin Ratio 0.9 L Stool Occult Blood Negative Quality Measures Quality Measures VTE prophylaxis Advance care planning discussed with:: patient Assessment & Plan Assessment Current Active Medications: Generic Name Dose Route Start Last Admin Trade Name Freq PRN Reason Stop Dose Admin Acetaminophen 650 mg 09/18/25 05:57 Acetaminophen 325 Mg Tablet PO 10/18/25 05:56 Q6H PRN Fever >100.4 Diclofenac Sodium 2 gm 09/20/25 09:15 09/20/25 09:15 Diclofenac 1% Top Gel 100 Gm Tube TOP 10/20/25 09:14 2 gm TID JASIEL Administration Docusate Sodium 100 mg 09/20/25 09:00 09/20/25 08:54 Docusate Sod 100 Mg Capsule PO 10/20/25 08:59 Not Given BID JASIEL Protocol Dorzolamide/Timolol 1 drop 09/20/25 09:00 09/20/25 09:09 Dorzolamide/Timolol Op Mattie 10 Ml Btl BOTH EYES 10/20/25 08:59 1 1000units BID JASIEL Administration Piperacillin Sod/Tazobactam 100 mls @ 25 mls/hr 09/18/25 14:00 09/20/25 06:16 Sod 4.5 gm/ Sodium Chloride IV 09/25/25 13:59 25 mls/hr Q8HR JASIEL Administration Protocol Sodium Chloride 1,000 mls @ 100 mls/hr 09/18/25 08:45 09/20/25 09:07 Ns IV 10/18/25 08:44 100 mls/hr .Q10H JASIEL Administration Potassium Chloride 10 meq in 100 mls @ 100 mls/hr 09/20/25 08:49 09/20/25 09:13 Kcl Ivpb IV 09/20/25 11:48 100 mls/hr Q1H JASIEL Administration Latanoprost 1 drop 09/20/25 09:00 09/20/25 09:12 Latanoprost Op Mattie 0.005% 2.5 Ml Btl BOTH EYES 10/20/25 08:59 Not Given DAILY JASIEL Morphine Sulfate 2 mg 09/18/25 06:09 09/19/25 22:10 Morphine Sulf Inj 4 Mg/Ml Vial IVP 09/23/25 06:08 2 mg Q6HR PRN Administration pain 7-10 Pantoprazole Sodium 40 mg 09/18/25 21:00 09/20/25 08:53 Pantoprazole Inj 40 Mg Vial IVP 10/18/25 20:59 40 mg BID JASIEL Administration Plan 65-year-old male with no significant PMH admitted for right lower quadrant phlegmon/abscess likely secondary to perforated appendicitis versus diverticulitis, complicated by NSAID-associated melena and inflammatory polyarticular joint pain, now clinically improving on IV antibiotics with normalized WBC and stable hemoglobin. #Right Lower Quadrant Abscess #Contained Perforation 65-year-old male with RLQ phlegmon/abscess likely secondary to perforated appendicitis versus diverticulitis Clinically stable with improving pain. Attempted drainage not safe due to surrounding bowel; continue IV antibiotics. Clinically improving with normalized WBC. Plan: * Continue IV Zosyn 4.5 g q8h * Advance diet to clear liquids per surgery * Serial abdominal exams * Monitor WBC and fever curve * Encourage ambulation and mobility * Notify surgery if worsening abdominal pain, fever, or clinical deterioration # Left Knee Pain / Effusion # B/L meagan swelling, new # OA vs RA? Chronic pain with imaging consistent with osteoarthritis; uric acid mildly elevated. Now with new b/l ankle swelling, consider RA vs OA Swelling and pain improving with topical diclofenac. ESR/CRP elevated, likely confounded by infection. Plan: * Continue diclofenac gel TID * Avoid systemic NSAIDs and steroids given GI bleed * Arthrocentesis planned for tomorrow * CARLOS pending * Encourage ambulation and physical activity * Consider outpatient rheumatology vs orthopedic follow-up # Suspected Upper GI Bleed (Melena) History of melena in the setting of chronic NSAID use. EGD without active upper GI bleeding; likely lower source at ileocecal junction. Hemoglobin stable. Plan: * Continue IV protonix BID. * Avoid NSAIDs and ASA. * Trend hemoglobin daily * GI following pending med recs. # Hypokalemia Potassium 3.0 this morning. * Repleted with 30 mEq IV potassium * Recheck BMP tomorrow # Transaminitis # Hyperbilirubinemia Likely reactive in the setting of intra-abdominal infection; bilirubin and LFTs downtrending. Previously elevated in setting of infection; now normalized. Plan: * MRCP complete, negative for cholecystitis and CBD stones * Continue to monitor * Surgery deferring gallbladder intervention at this time # Cholelithiasis # Possible Acute Calculous Cholecystitis Imaging suggestive but patient without RUQ pain or systemic signs. Plan: * Conservative management per surgery * No surgical intervention at this time Health Maintenance DVT Prophylaxis: SCDs only GI Prophylaxis: Pantoprazole IV BID Diet: Clear liquid diet advance as tolerated. Code Status: Full Code Disposition: Telemetry; pending arthrocentesis tomorrow. ----- Plan discussed with attending physician Dr. Sanches and senior resident Dr. Ethel Rooney MD PGY-1 Internal Medicine
[2025-09-20] MEDS: MORPHINE SULF INJ 4 MG/ML VIAL 2 MG IVP (11:59)
--- NOTE | 2025-09-20 15:16 | PC.NURSE ---
Endorsesd pt. to Anjelica Joiner.
--- NOTE | 2025-09-20 15:50 | PC.SS ---
Rounding note: Continue IV Abx & starting clear liquid diet. Discharge plan: HOME
--- NOTE | 2025-09-20 18:03 | ESPR_ITS ---
Documentation for date of: 09/20/25 Subjective Subjective Interval history: Patient evaluated Passing flatus Upper endoscopy showed gastritis On clear liquids now Exam Vital Signs Temp Pulse Resp BP Pulse Ox O2 Del Method O2 Flow Rate 98.9 F 73 16 109/63 94 L Room Air 2 09/20/25 12:00 09/20/25 16:34 09/20/25 16:34 09/20/25 12:00 09/20/25 12:00 09/20/25 12:00 09/19/25 20:25 Objective Labs 09/20/25 07:15 09/20/25 07:15 Labs: Laboratory Results - last 24 hr 09/19/25 09/20/25 20:02 07:15 WBC 9.4 RBC 3.61 L Hgb 9.9 L Hct 30.7 L MCV 85 MCH 27.4 MCHC 32.2 RDW Std Deviation 42.5 Plt Count 358 D Neut % (Auto) 79 Lymph % (Auto) 14 [place] % (Auto) 4 Eos % (Auto) 2 Baso % (Auto) 0 Neut # (Auto) 7.5 Lymph # (Auto) 1.4 [place] # (Auto) 0.4 Eos # (Auto) 0.2 Baso # (Auto) 0.0 Immature Gran # (Auto) 0.06 H Absolute Nucleated RBC 0.00 Immature Gran % 1 H Nucleated RBC % 0 Sodium 142 Potassium 3.0 L Chloride 103 Carbon Dioxide 23.6 Anion Gap 15 BUN 10 Creatinine 1.1 Estim Creat Clear Calc 79.1 eGFR > 60 BUN/Creatinine Ratio 9 L Glucose 95 Calculated Osmolality 282 Calcium 8.4 Corrected Calcium 9.0 Phosphorus 3.4 Magnesium 2.0 Total Bilirubin 0.9 AST 25 ALT 41 Alkaline Phosphatase 139 H Total Protein 6.8 Albumin 3.3 L Globulin 3.5 Albumin/Globulin Ratio 0.9 L Stool Occult Blood Negative Impressions Impression: Gastritis Right lower quadrant inflammatory/infectious mass Continue present treatment Assessment & Plan Time Spent With Patient Time: Total time spent is greater than 50% in coordination of care (as documented) at patient's floor/unit and/or counseling patient:
[2025-09-20] MEDS: DiphenhydrAMINE ELIX 25 MG/10 ML UDC 12.5 MG PO (21:21)
[2025-09-20] MEDS: LATANOPROST OP SOL 0.005% 2.5 ML BTL 1 DROP BOTH EYES (21:32)
[2025-09-21] VITALS (10 sets, daily range): BP systolic 97–123; BP diastolic 55–76; PULSE 58–81; RESP 16–97; TEMP 36.5–37.2; O2SAT 92–97
[2025-09-21] MEDS: PIPER/TAZO INJ 4.5 GM in SODIUM CHLORIDE 0.9% (POP) 100 ML IV ×3 (05:38→21:27)
[2025-09-21] MEDS: SODIUM CHLORIDE 0.9% 1000 ML 1,000 ML 100 ML IV (05:45)
[2025-09-21] MEDS: DICLOFENAC 1% TOP GEL 100 GM TUBE TOP ×3 (05:47→21:28)
[2025-09-21 06:21] LABS: Alanine Aminotransferase 37 U/L (10-49); Albumin, Serum 2.8 gm/dL (3.4-4.8); Albumin/Globulin Ratio 0.9 (1.2-2.2); Alkaline Phosphatase 113 U/L (46-116); Anion Gap 11 (7-16); Aspartate Amino Transferase 31 U/L (0-34); BUN/Creatinine Ratio 7 Ratio (12-20); Bilirubin,Total 0.6 mg/dL (0.3-1.2); Blood Urea Nitrogen 7 mg/dL (9-23); Calcium 7.8 mg/dL (8.3-10.6); Calcium (Corrected) 8.8 mg/dL (8.5-10.1); Carbon Dioxide 25.0 mMol/L (20.0-31.0); Chloride 105 mMol/L (98-107); Creatinine (Component) 1.0 mg/dL (0.6-1.3); Estimated Creatinine Clearance 87.0 mL/min (>60); Globulin 3.2 gm/dL (2.3-3.5); Glucose 107 mg/dL (74-106); Magnesium 1.9 mg/dL (1.6-2.6); Osmolality,Calculated 279 (275-295); Phosphorous 3.2 mg/dL (2.4-5.1); Potassium 2.9 mMol/L (3.4-5.1); Sodium 141 mMol/L (136-145); Total Protein 6.0 gm/dL (5.7-8.2); eGFR > 60 See Note
[2025-09-21 06:22] LABS: Basophils # (Auto) 0.0 Thou/mm3 (0.0-0.2); Basophils % (Auto) 0 % (0-2.5); Eosinophils # (Auto) 0.2 Thou/mm3 (0.0-0.5); Eosinophils % (Auto) 3 % (0-10); Hematocrit 29.2 % (41.0-53.0); Hemoglobin 9.2 g/dL (13.5-16.0); Immature Granulocytes Auto 0.03 Thou/mm3 (0.00-0.00); Lymphocytes # (Auto) 1.3 Thou/mm3 (1.0-4.8); Lymphocytes % (Auto) 19 % (10-50); Mean Corpuscular HGB Conc 31.5 g/dl (31.0-37.0); Mean Corpuscular Hemoglobin 26.7 pg (25.0-35.0); Mean Corpuscular Volume 85 fL (80-100); Monocytes # (Auto) 0.2 Thou/mm3 (0.0-0.8); Monocytes % (Auto) 3 % (0-12); Neutrophils # (Auto) 5.2 Thou/mm3 (1.8-7.7); Neutrophils % (Auto) 74 % (37-80); Nucleated Red Blood Cell # 0.00 Thou/mm3 (0.00-0.00); Nucleated Red Blood Cell % 0 /100 WBC (0); Platelet Count 360 Thou/mm3 (140-440); RDW Standard Deviation 41.7 fL (35.1-43.9); Red Blood Count 3.45 Miln/mm3 (4.50-5.90); White Blood Count 7.0 Thou/mm3 (3.8-10.6)
--- NOTE | 2025-09-21 08:50 | ESPR_ITS ---
<Statement entered by Ronen Sanches MD - 09/25/25 08:34> I reviewed above note and agree with findings and plans. I have also personally examined the patient with medicine team and went over assessment and plan with medical team including financial services internship and resident physician. <Statement entered by Celso Davenport MD - 09/22/25 12:14> I discussed with and supervised the financial services internship physician involved in the care of this patient. Patient assessment and plan was discussed with entire medicine team, including my attending. I agree with the assessment and plan as documented by financial services internship doctor. Patient care was discussed with my attending physician Dr. Verónica Davenport, PGY-3 Documentation for date of: 09/21/25 Subjective Subjective Interval history: Patient seen at bedside this morning. Reports abdominal pain still present in the right lower quadrant, unchanged from yesterday. States he got up, ambulated, and sat in a chair yesterday. Tolerating clear liquid diet well. Reports diarrhea yesterday, approximately 2?3 loose bowel movements. Bilateral ankle swelling remains present but improved compared to prior presentation. Left knee swelling also improved, though still present. Patient aware of plan for possible left knee arthrocentesis today. Denies nausea, vomiting, chest pain, shortness of breath, dizziness, or lightheadedness. No other complaints. Exam Vital Signs Temp Pulse Resp BP Pulse Ox O2 Del Method O2 Flow Rate 98.3 F 66 18 100/55 L 95 Room Air 2 09/21/25 08:00 09/21/25 08:00 09/21/25 08:00 09/21/25 08:00 09/21/25 08:00 09/21/25 08:00 09/21/25 08:00 Narrative Exam General: Awake, alert, no acute distress HEENT: Normocephalic, atraumatic, mucous membranes moist Cardiac: Regular rate and rhythm, no murmurs Pulmonary: Clear to auscultation bilaterally, no respiratory distress Abdomen: Soft, nondistended, mild RLQ tenderness improved, no guarding or rebound Extremities: * Left knee: Swelling improved, increased range of motion, less pain with movement, no erythema or warmth * Bilateral ankles: Swelling improved, non-tender, no erythema Neuro: Alert and oriented ?3, no focal deficits Skin: Warm, dry, no rashes Objective Labs 09/21/25 05:37 09/21/25 05:37 Labs: Laboratory Results - last 24 hr 09/21/25 05:37 WBC 7.0 RBC 3.45 L Hgb 9.2 L Hct 29.2 L MCV 85 MCH 26.7 MCHC 31.5 RDW Std Deviation 41.7 Plt Count 360 Neut % (Auto) 74 Lymph % (Auto) 19 [place] % (Auto) 3 Eos % (Auto) 3 Baso % (Auto) 0 Neut # (Auto) 5.2 Lymph # (Auto) 1.3 [place] # (Auto) 0.2 Eos # (Auto) 0.2 Baso # (Auto) 0.0 Immature Gran # (Auto) 0.03 H Absolute Nucleated RBC 0.00 Immature Gran % 0 Nucleated RBC % 0 Sodium 141 Potassium 2.9 L Chloride 105 Carbon Dioxide 25.0 Anion Gap 11 BUN 7 L Creatinine 1.0 Estim Creat Clear Calc 87.0 eGFR > 60 BUN/Creatinine Ratio 7 L Glucose 107 H Calculated Osmolality 279 Calcium 7.8 L Corrected Calcium 8.8 Phosphorus 3.2 Magnesium 1.9 Total Bilirubin 0.6 AST 31 ALT 37 Alkaline Phosphatase 113 D Total Protein 6.0 Albumin 2.8 L D Globulin 3.2 Albumin/Globulin Ratio 0.9 L Quality Measures Quality Measures VTE prophylaxis Advance care planning discussed with:: patient Assessment & Plan Assessment Current Active Medications: Generic Name Dose Route Start Last Admin Trade Name Freq PRN Reason Stop Dose Admin Acetaminophen 650 mg 09/18/25 05:57 Acetaminophen 325 Mg Tablet PO 10/18/25 05:56 Q6H PRN Fever >100.4 Diclofenac Sodium 2 gm 09/20/25 09:15 09/21/25 05:47 Diclofenac 1% Top Gel 100 Gm Tube TOP 10/20/25 09:14 2 gm TID JASIEL Administration Docusate Sodium 100 mg 09/20/25 09:00 09/20/25 22:04 Docusate Sod 100 Mg Capsule PO 10/20/25 08:59 Not Given BID JASIEL Protocol Dorzolamide/Timolol 1 drop 09/20/25 09:00 09/20/25 21:31 Dorzolamide/Timolol Op Mattie 10 Ml Btl BOTH EYES 10/20/25 08:59 1 drop BID JASIEL Administration Piperacillin Sod/Tazobactam 100 mls @ 25 mls/hr 09/18/25 14:00 09/21/25 05:38 Sod 4.5 gm/ Sodium Chloride IV 09/25/25 13:59 25 mls/hr Q8HR JASIEL Administration Protocol Potassium Chloride 10 meq in 100 mls @ 100 mls/hr 09/21/25 08:21 Kcl Ivpb IV 09/21/25 12:20 Q1H JASIEL Latanoprost 1 drop 09/20/25 09:00 09/20/25 21:32 Latanoprost Op Mattie 0.005% 2.5 Ml Btl BOTH EYES 10/20/25 08:59 1 drop DAILY JASIEL Administration Morphine Sulfate 2 mg 09/18/25 06:09 09/20/25 11:59 Morphine Sulf Inj 4 Mg/Ml Vial IVP 09/23/25 06:08 2 mg Q6HR PRN Administration pain 7-10 Pantoprazole Sodium 40 mg 09/18/25 21:00 09/20/25 21:33 Pantoprazole Inj 40 Mg Vial IVP 10/18/25 20:59 40 mg BID JASIEL Administration Plan 65-year-old male with no significant PMH admitted for right lower quadrant phlegmon/abscess likely secondary to perforated appendicitis versus diverticulitis, complicated by NSAID-associated melena and inflammatory joint symptoms, currently clinically stable on IV antibiotics with improving leukocytosis and joint swelling, pending further surgical and IR recommendations. #Right Lower Quadrant Abscess #Contained Perforation 65-year-old male with RLQ phlegmon/abscess likely secondary to perforated appendicitis versus diverticulitis Clinically stable with improving pain. Attempted drainage not safe due to surrounding bowel; continue IV antibiotics. Clinically improving with normalized WBC. Plan: * Continue IV Zosyn 4.5 g q8h * Continue clear liquid diet, discuss diet advancement with General Surgery today * Serial abdominal exams * Monitor WBC and fever curve * Encourage ambulation and mobility * Notify surgery if worsening abdominal pain, fever, or clinical deterioration # Left Knee Pain / Effusion # Polyarticular Joint Swelling # Bilateral Ankle Edema # OA vs RA? Chronic pain with imaging consistent with osteoarthritis; uric acid mildly elevated. Now with new b/l ankle swelling, consider RA vs OA Swelling and pain improving with topical diclofenac. ESR/CRP elevated, likely confounded by infection. Plan: * Continue diclofenac gel TID * Avoid systemic NSAIDs and steroids given GI bleed * Arthrocentesis planned today with IR * Follow synovial fluid studies if obtained * CARLOS pending * Encourage ambulation and physical activity * Consider outpatient rheumatology vs orthopedic follow-up # Suspected Upper GI Bleed (Melena) History of melena in the setting of chronic NSAID use. EGD without active upper GI bleeding; likely lower source at ileocecal junction. Hemoglobin stable. Plan: * Continue IV protonix BID. * Avoid NSAIDs and ASA. * Trend hemoglobin daily * GI following pending med recs. # Diarrhea New onset diarrhea with 2?3 loose bowel movements yesterday. Plan: * Monitor stool frequency and consistency * If persistent or worsening, consider stool studies * Maintain hydration * Monitor electrolytes closely # Hypokalemia Plan: * Repleted with 40 mEq IV potassium * Repeat renal panel at 14:00 * Recheck BMP tomorrow * Monitor closely given ongoing diarrhea # Transaminitis # Hyperbilirubinemia Likely reactive in the setting of intra-abdominal infection; bilirubin and LFTs downtrending. Previously elevated in setting of infection; now normalized. Plan: * MRCP complete, negative for cholecystitis and CBD stones * Continue to monitor * Surgery deferring gallbladder intervention at this time # Cholelithiasis # Possible Acute Calculous Cholecystitis Imaging suggestive but patient without RUQ pain or systemic signs. Plan: * Conservative management per surgery * No surgical intervention at this time Health Maintenance DVT Prophylaxis: SCDs only GI Prophylaxis: Pantoprazole IV BID Diet: Clear liquid diet advance as tolerated. Code Status: Full Code Disposition: Telemetry; pending arthrocentesis ----- Plan discussed with attending physician Dr. Sanches and senior resident Dr. Ethel Rooney MD PGY-1 Internal Medicine
[2025-09-21] MEDS: POTASSIUM CHL 10 mEq IVPB 10 MEQ/100 ML BAG 100 MEQ IV ×4 (09:12→12:56)
[2025-09-21] MEDS: [UNRECOGNIZED DRUG - OTHER] BOTH EYES ×2 (09:13→21:27)
[2025-09-21] MEDS: DORZOLAMIDE BOTH EYES ×2 (09:13→21:27)
[2025-09-21] MEDS: LATANOPROST OP SOL 0.005% 2.5 ML BTL 1 DROP BOTH EYES (09:13)
--- NOTE | 2025-09-21 11:53 | PD.SURPROG ---
Documentation for date of: 09/21/25 Subjective Subjective Narrative: Patient is seen and examined. His pain is improving. He is tolerating liquids without nausea or vomiting and has bowel movements Exam Vital Signs Temp Pulse Resp BP Pulse Ox O2 Del Method O2 Flow Rate 98.3 F 66 18 100/55 L 95 Room Air 2 09/21/25 08:00 09/21/25 08:00 09/21/25 08:00 09/21/25 08:00 09/21/25 08:00 09/21/25 08:00 09/21/25 08:00 Constitutional Constitutional: no acute distress Routine Abdominal Exam Comments: Abdomen is soft and nondistended. He has right lower quadrant tenderness to deep palpation with guarding, no rebound tenderness or peritonitis at this time Assessment & Plan Assessment Additional comments: He is responding very well with antibiotic treatment. He has remained afebrile and white count is normal, however he still has right lower quadrant pain Plan Continue IV antibiotics. Advance to soft diet
--- NOTE | 2025-09-21 13:56 | PC.PT ---
Patient will be dc from PT services secondary to patient is I with transfers and ambulation without AD.
--- NOTE | 2025-09-21 17:09 | ESPR_ITS ---
Documentation for date of: 09/21/25 Subjective Subjective Interval history: Patient evaluated Tolerating liquid diet and passing flatus and having bowel movements Exam Vital Signs Temp Pulse Resp BP Pulse Ox O2 Del Method O2 Flow Rate 98.3 F 67 18 123/76 97 Room Air 2 09/21/25 16:00 09/21/25 16:00 09/21/25 16:00 09/21/25 16:00 09/21/25 16:00 09/21/25 16:00 09/21/25 08:00 Objective Labs 09/21/25 05:37 09/21/25 05:37 Labs: Laboratory Results - last 24 hr 09/21/25 05:37 WBC 7.0 RBC 3.45 L Hgb 9.2 L Hct 29.2 L MCV 85 MCH 26.7 MCHC 31.5 RDW Std Deviation 41.7 Plt Count 360 Neut % (Auto) 74 Lymph % (Auto) 19 [place] % (Auto) 3 Eos % (Auto) 3 Baso % (Auto) 0 Neut # (Auto) 5.2 Lymph # (Auto) 1.3 [place] # (Auto) 0.2 Eos # (Auto) 0.2 Baso # (Auto) 0.0 Immature Gran # (Auto) 0.03 H Absolute Nucleated RBC 0.00 Immature Gran % 0 Nucleated RBC % 0 Sodium 141 Potassium 2.9 L Chloride 105 Carbon Dioxide 25.0 Anion Gap 11 BUN 7 L Creatinine 1.0 Estim Creat Clear Calc 87.0 eGFR > 60 BUN/Creatinine Ratio 7 L Glucose 107 H Calculated Osmolality 279 Calcium 7.8 L Corrected Calcium 8.8 Phosphorus 3.2 Magnesium 1.9 Total Bilirubin 0.6 AST 31 ALT 37 Alkaline Phosphatase 113 D Total Protein 6.0 Albumin 2.8 L D Globulin 3.2 Albumin/Globulin Ratio 0.9 L Impressions Impression: Gastritis Mass right lower quadrant improved with antibiotics Advance diet Assessment & Plan Time Spent With Patient Time: Total time spent is greater than 50% in coordination of care (as documented) at patient's floor/unit and/or counseling patient:
--- NOTE | 2025-09-21 23:45 | PC.NURSE ---
Patient is refusing vital signs to be taken at this time for 0000. Pt prefers to be checked at 0145 and 0600. Previous vitals signs have been stable. Dr. Alvarez made aware, MD agreed.
[2025-09-22] VITALS (9 sets, daily range): BP systolic 97–116; BP diastolic 57–74; PULSE 59–78; RESP 16–96; TEMP 36.1–36.7; O2SAT 95–96
[2025-09-22] MEDS: DICLOFENAC 1% TOP GEL 100 GM TUBE TOP (06:35)
[2025-09-22] MEDS: PIPER/TAZO INJ 4.5 GM in SODIUM CHLORIDE 0.9% (POP) 100 ML IV (06:37)
[2025-09-22 08:02] LABS: Basophils # (Auto) 0.0 Thou/mm3 (0.0-0.2); Basophils % (Auto) 0 % (0-2.5); Eosinophils # (Auto) 0.2 Thou/mm3 (0.0-0.5); Eosinophils % (Auto) 4 % (0-10); Hematocrit 31.4 % (41.0-53.0); Hemoglobin 10.0 g/dL (13.5-16.0); Immature Granulocytes Auto 0.02 Thou/mm3 (0.00-0.00); Lymphocytes # (Auto) 1.2 Thou/mm3 (1.0-4.8); Lymphocytes % (Auto) 22 % (10-50); Mean Corpuscular HGB Conc 31.8 g/dl (31.0-37.0); Mean Corpuscular Hemoglobin 27.0 pg (25.0-35.0); Mean Corpuscular Volume 85 fL (80-100); Monocytes # (Auto) 0.2 Thou/mm3 (0.0-0.8); Monocytes % (Auto) 4 % (0-12); Neutrophils # (Auto) 3.8 Thou/mm3 (1.8-7.7); Neutrophils % (Auto) 69 % (37-80); Nucleated Red Blood Cell # 0.00 Thou/mm3 (0.00-0.00); Nucleated Red Blood Cell % 0 /100 WBC (0); Platelet Count 408 Thou/mm3 (140-440); RDW Standard Deviation 41.4 fL (35.1-43.9); Red Blood Count 3.70 Miln/mm3 (4.50-5.90); White Blood Count 5.5 Thou/mm3 (3.8-10.6)
[2025-09-22 08:20] LABS: Alanine Aminotransferase 38 U/L (10-49); Albumin, Serum 3.1 gm/dL (3.4-4.8); Albumin/Globulin Ratio 0.9 (1.2-2.2); Alkaline Phosphatase 100 U/L (46-116); Anion Gap 9 (7-16); Aspartate Amino Transferase 29 U/L (0-34); BUN/Creatinine Ratio 6 Ratio (12-20); Bilirubin,Total 0.5 mg/dL (0.3-1.2); Blood Urea Nitrogen 6 mg/dL (9-23); Calcium 8.4 mg/dL (8.3-10.6); Calcium (Corrected) 9.1 mg/dL (8.5-10.1); Carbon Dioxide 29.3 mMol/L (20.0-31.0); Chloride 104 mMol/L (98-107); Creatinine (Component) 1.0 mg/dL (0.6-1.3); Estimated Creatinine Clearance 87.0 mL/min (>60); Globulin 3.4 gm/dL (2.3-3.5); Glucose 115 mg/dL (74-106); Magnesium 2.1 mg/dL (1.6-2.6); Osmolality,Calculated 281 (275-295); Phosphorous 3.7 mg/dL (2.4-5.1); Potassium 3.4 mMol/L (3.4-5.1); Sodium 142 mMol/L (136-145); Total Protein 6.5 gm/dL (5.7-8.2); eGFR > 60 See Note
[2025-09-22] MEDS: [UNRECOGNIZED DRUG - OTHER] BOTH EYES (09:18)
[2025-09-22] MEDS: LATANOPROST OP SOL 0.005% 2.5 ML BTL 1 DROP BOTH EYES (09:18)
[2025-09-22] MEDS: DORZOLAMIDE BOTH EYES (09:18)
--- NOTE | 2025-09-22 10:35 | ESDS_ITS ---
<Statement entered by Ronen Sanches MD - 09/26/25 12:55> I reviewed above note and agree with findings and plans. I have also personally examined the patient with medicine team and went over assessment and plan with medical team including market research intern and resident physician. Planned Discharge Date 09/22/25 DS: Providers Provider Date of admission: 09/18/25 05:57 Primary care physician: Physician No Primary/Family Admitting Provider: Perfecto Gilliam DO Attending Provider on Admission: Ronen Sanches MD Consults: 09/18/25 01:07 Consult to Gastroenterology Stat Comment: Consulting Provider: Mannie León 09/18/25 05:59 Consult to General Surgery Stat Comment: Consulting Provider: Phil Simms 09/18/25 06:04 Referral Physical Therapy Routine Comment: Physician Instructions: 09/18/25 16:16 Referral Registered Dietitian Routine Comment: Attending Provider on DC: Ronen Sanches MD Discharging Provider: Rasheed Rooney MD DS: Diagnosis Problem List Completed Was Problem List Reviewed/Reconciled?: Yes Hospital Course Hospital Course Hospital course: 65-year-old male admitted for right lower quadrant abscess/contained perforation likely secondary to perforated appendicitis vs diverticulitis. He was treated with IV antibiotics (Zosyn) and maintained NPO for bowel rest. A GI bleed was suspected based on melena, but EGD showed gastritis and esophagitis without active bleeding. He tolerated a clear liquid diet well and was advanced to full oral intake. The patient had a history of left knee pain with mild effusion and bilateral ankle swelling, which improved with topical diclofenac gel and acetaminophen for pain. Arthrocentesis for the left knee is planned, pending availability of IR. Diarrhea was reported yesterday, with 2?3 loose stools. His electrolytes were managed with IV potassium, and his hemoglobin remained stable throughout his stay. Blood cultures were negative after 48 hours. The patient's clinical status improved with IV antibiotics, and he was able to mobilize, sit in a chair, and tolerate a clear liquid diet. General Surgery was consulted, and the patient's abscess was not amenable to drainage due to its proximity to surrounding bowel. The surgical team recommended continued antibiotics and a regular diet, with follow-up as an outpatient. Diagnosis during admission: # Right Lower Quadrant Abscess # Contained Perforation # Left Knee Pain / Effusion # Polyarticular Joint Swelling # Bilateral Ankle Edema, improving # OA vs RA? # Suspected Upper GI Bleed (Melena) # Diarrhea # Hypokalemia, resolved # Transaminitis, resolved # Hyperbilirubinemia, resolved # Cholelithiasis # Possible Acute Calculous Cholecystitis, ruled out Discharge Instructions: * Follow-up with PCP within 1-2 weeks of discharge. * Apply DICLOFENAC gel over knee area up to three times daily as needed for severe pain. * Continue taking CIPROFLOXACIN 500 mg TWICE DAILY for 10 more day. * Continue taking METRONIDAZOLE 500 mg THREE TIME DAILY for 10 more days. * Take NORCO up to 4 times daily as needed for severe pain. Do not exceed 4 pills daily. * Recommended outpatient colonoscopy, please discuss with your doctor * Continue taking medications as prescribed below. * Return to Emergency Room if symptoms persist, worsen, or new symptoms develop. ----- Plan discussed with attending physician Dr. Verónica Rooney MD PGY-1 Internal Medicine Time Spent with Patient Time attestation: Total time spent providing and/or coordinating discharge services: Time spent: Greater than 30 minutes Exam Vital Signs Temp Pulse Resp BP Pulse Ox O2 Del Method O2 Flow Rate 97.0 F 62 16 114/69 96 Room Air 2 09/22/25 08:00 09/22/25 08:00 09/22/25 08:00 09/22/25 08:00 09/22/25 08:00 09/22/25 08:00 09/21/25 08:00 Narrative Exam General: Awake, alert, no acute distress HEENT: Normocephalic, atraumatic, mucous membranes moist Cardiac: Regular rate and rhythm, no murmurs Pulmonary: Clear to auscultation bilaterally, no respiratory distress Abdomen: Soft, nondistended, mild RLQ tenderness improved, no guarding or rebound Extremities: * Left knee: Swelling improved, increased range of motion, less pain with movement, no erythema or warmth * Bilateral ankles: Swelling improved, non-tender, no erythema Neuro: Alert and oriented ?3, no focal deficits Skin: Warm, dry, no rashes Discharge Plan Plan Patient Disposition: HOME (Self Care) Patient condition on transfer: Stable Care Plan Goals: * Follow-up with PCP within 1-2 weeks of discharge. * Apply DICLOFENAC gel over knee area up to three times daily as needed for severe pain. * Continue taking CIPROFLOXACIN 500 mg TWICE DAILY for 10 more day. * Continue taking METRONIDAZOLE 500 mg THREE TIME DAILY for 10 more days. * Take NORCO up to 4 times daily as needed for severe pain. Do not exceed 4 pills daily. * Recommended outpatient colonoscopy, please discuss with your doctor * Continue taking medications as prescribed below. * Return to Emergency Room if symptoms persist, worsen, or new symptoms develop. Prescriptions/Referrals Prescriptions/Med Rec: New diclofenac sodium 1 % Gel 2 g top TID 30 Days Qty: 2 0RF ciprofloxacin HCl 500 mg tablet 500 mg PO BID Qty: 20 0RF metronidazole 500 mg tablet 500 mg PO TID Qty: 30 0RF docusate sodium [Colace] 100 mg capsule 100 mg PO QDAY Qty: 30 0RF sennosides [senna] 8.6 mg tablet 8.6 mg PO QDAY PRN (Reason: constipation) Qty: 30 0RF hydrocodone-acetaminophen 5-325 mg tablet 1 tab PO Q6H MDD 4 pills in 24 hours PRN (Reason: pain) 7 Days Qty: 28 0RF Rx Instructions: Take 4 times daily as needed for severe pain. naloxone [Narcan] 4 mg/actuation spray,non-aerosol 4 mg intranasal Q3M PRN (Reason: opioid overdose) Qty: 2 0RF Rx Instructions: spray 1 dose into ONE nostril; alternate nostrils w each dose until help arrives Continued cholecalciferol (vitamin D3) [Vitamin D3] 50 mcg (2,000 unit) capsule 50 mcg PO QDAY cyanocobalamin (vitamin B-12) [Vitamin B-12] 1,000 mcg tablet 2,000 mcg PO QDAY zinc 25 mg tablet 25 mg PO DAILY Probiotic 1 tab PO DAILY Patient Comments: lactobacillus acidophilus, La-14(100 million CFU), 0.5mg from [employer]. Fish Oil 1 tab PO DAILY Patient Comments: 24oomg/1200mg of [place]-3 per serving. from [employer] magnesium 1 tab PO DAILY magnesium 200 mg tablet 400 mg PO QDAY Patient Comments: from [employer] latanoprost 0.005 % drops 1 drp Both eyes DAILY dorzolamide-timolol 22.3-6.8 mg/mL drops 1 drp Both eyes BID Patient Comments: INSTILL 1 DROP INTO BOTH EYES TWICE A DAY Referrals: No Primary/Family,Physician [Primary Care Provider] Patient/Caregiver Discharge Instructions Discharge Activity: activity as tolerated Print Language: [place] Activity Restrictions/Additional Instructions: Please call Dr. León and schedule an appointment for an outpatient colonoscopy. Follow-up with Dr Simms after colonoscopy is done. Please call [phone] for an appointment. Stand Alone Forms: Tamela Award Info., Patient Portal Info Letter Discharge Order Discharge Orders: Discharge (Routine); Ordered 09/22/25 Ordered By: Rasheed Rooney Quality Discharge Quality Measures VTE prophylaxis
--- NOTE | 2025-09-22 10:58 | ESPR_ITS ---
Documentation for date of: 09/22/25 Subjective Subjective Narrative: Patient is seen and examined. His pain improved significantly. He is tolerating diet without nausea or vomiting and having bowel movements Exam Vital Signs Temp Pulse Resp BP Pulse Ox O2 Del Method O2 Flow Rate 97.0 F 62 16 114/69 96 Room Air 2 09/22/25 08:00 09/22/25 08:00 09/22/25 08:00 09/22/25 08:00 09/22/25 08:00 09/22/25 08:00 09/21/25 08:00 Constitutional Constitutional: no acute distress Routine Abdominal Exam Comments: Abdomen is soft and nondistended. He has very minimal tenderness to deep palpation over right lower abdomen, no rebound tenderness or peritonitis Assessment & Plan Assessment Additional comments: Presumed perforated appendicitis, clinically significantly improved Plan He can be discharged on oral antibiotics for 10 days. He would like to follow- up with Dr. León for an outpatient colonoscopy to rule out malignancy. Follow- up with Dr Simms after his colonoscopy is done.
--- NOTE | 2025-09-22 11:11 | ESPR_ITS ---
Documentation for date of: 09/22/25 Exam Vital Signs Temp Pulse Resp BP Pulse Ox O2 Del Method O2 Flow Rate 97.0 F 62 16 114/69 96 Room Air 2 09/22/25 08:00 09/22/25 08:00 09/22/25 08:00 09/22/25 08:00 09/22/25 08:00 09/22/25 08:00 09/21/25 08:00 Objective Labs 09/22/25 07:47 09/22/25 07:47 Labs: Laboratory Results - last 24 hr 09/22/25 07:47 WBC 5.5 RBC 3.70 L Hgb 10.0 L Hct 31.4 L MCV 85 MCH 27.0 MCHC 31.8 RDW Std Deviation 41.4 Plt Count 408 D Neut % (Auto) 69 Lymph % (Auto) 22 [place] % (Auto) 4 Eos % (Auto) 4 Baso % (Auto) 0 Neut # (Auto) 3.8 Lymph # (Auto) 1.2 [place] # (Auto) 0.2 Eos # (Auto) 0.2 Baso # (Auto) 0.0 Immature Gran # (Auto) 0.02 H Absolute Nucleated RBC 0.00 Immature Gran % 0 Nucleated RBC % 0 Sodium 142 Potassium 3.4 D Chloride 104 Carbon Dioxide 29.3 Anion Gap 9 BUN 6 L Creatinine 1.0 Estim Creat Clear Calc 87.0 eGFR > 60 BUN/Creatinine Ratio 6 L Glucose 115 H Calculated Osmolality 281 Calcium 8.4 Corrected Calcium 9.1 Phosphorus 3.7 Magnesium 2.1 Total Bilirubin 0.5 AST 29 ALT 38 Alkaline Phosphatase 100 Total Protein 6.5 Albumin 3.1 L Globulin 3.4 Albumin/Globulin Ratio 0.9 L Assessment & Plan Time Spent With Patient Time: Total time spent is greater than 50% in coordination of care (as documented) at patient's floor/unit and/or counseling patient:
[2025-09-29 06:29] LABS: ANA Screen, IFA POSITIVE (NEGATIVE); ANA Titer 1:40 titer
== END 2025-09-22 13:35 | disposition home or self-care (01) | DRG 371 ==
LOC: SERX 09-18 05:15 → SERHOLD 09-18 07:05 → S3SX 09-18 14:04
PROVIDERS: Physician Assistant; Specialist; Student in an Organized Health Care Education/Training Program; Admitting Provider Internal Medicine; Emergency Provider Emergency Medicine; Visit Provider Internal Medicine
PROC: (CPT 43239; principal; 2025-09-19 18:45)
DX: K35.33 Acute appendicitis with perforation, localized peritonitis, and gangrene, with abscess (principal); K29.71 Gastritis, unspecified, with bleeding; K80.10 Calculus of gallbladder with chronic cholecystitis without obstruction; M25.561 Pain in right knee; M25.571 Pain in right ankle and joints of right foot; E87.6 Hypokalemia; R74.01 Elevation of levels of liver transaminase levels; K59.00 Constipation, unspecified; G89.29 Other chronic pain; Z79.1 Long term (current) use of non-steroidal anti-inflammatories (NSAID); Z63.4 Disappearance and death of family member
CPT/HCPCS: 36415; 71045; 73562; 74174; 74181; 76705; 77012; 80053; 80074; 80076; 80307; 81001; 82270; 82945; 83036; 83605; 83735; 83880; 84100; 84145; 84484; 84550; 85025; 85610; 85652; 86038; 86039; 86140; 86850; 86900; 86901; 87040; 87070; 87205; 89051; 93005; 93225; 96365; 96375; 97163; 99284; A4649; J1200; J2250; J2270; J2405; J2470; J2543; J3010; J3480; J3490; J7030; Q9967; A9270